=== PATIENT | female | born 1940 | race Caucasian/White ===

== ENCOUNTER 2016-07-16 10:48 | Inpatient (IN) | payer MEDICARE, BC ==
--- NOTE | ~2016-07-16 | EKG ---
PATIENT: REGINE BERRIOS UNIT #: [id number] Ventricular Rate: 93 BPM Atrial Rate: 93 BPM P-R Interval: 170 ms QRS Duration: 54 ms Q-T Interval: 360 ms QTC Calculation(Bezet): 447 ms P [place]: 78 degrees Calculated R [place]: 59 degrees Calculated T [place]: 81 degrees Diagnosis Line: Normal sinus rhythm Diagnosis Line: Normal ECG Diagnosis Line: When compared with ECG of 24-APR-2015 11:45, Diagnosis Line: No significant change was found Diagnosis Line: Confirmed by LOVE ROB MD ([id number]) on Diagnosis Line: 07/17/2016 4:08:56 PM INTERPRETING MD: DARRON PAZ
--- NOTE | ~2016-07-16 | CR72 ---
[facility] A Service of [facility] RADIOLOGY TEXT RESULTS PATIENT: REGINE BERRIOS LOCATION: [facility] : 40 UNIT #: [id number] AGE: [address]: Leobardo Hernandez MD SEX: F ORDER DR: [id number] [facility] [address] [facility]. [place], [place] [address] [id number] I MR#: [id number] #: [id number] NAME: REGINE BERRIOS : 1940 SEX: F STUDY DATE/TIME: 07/16/2016 11:28 UNIT: [facility] ROOM: [facility] STUDY DESCRIPTION: CR Chest Single View Portable Attending Physician: Teri Hernandez M.D. Ordering Physician: Malaika Watson M.D. Primary Care Physician: Kory Dior M.D. MEDICAL IMAGING REPORT This report is preliminary unless electronic signature is present EXAM Chest portable, 07/16/2016 11:28 hours HISTORY 75-year-old woman with shortness of air, wheezing, cough for 4 days. History of COPD, breast cancer and polycythemia. COMPARISON 02/10/2016 FINDINGS Portable upright chest demonstrates normal heart size. Mediastinal and hilar contours are unchanged. There are stable benign calcified granulomata. There is basilar vascular crowding with no definite acute pulmonary density or pleural effusion. IMPRESSION Stable benign calcified granulomatous changes. There is mild basilar vascular crowding with no definite acute cardiopulmonary findings. Stable sclerotic density in the lower thoracic spine. Dictated by... Sara Dueñas M.D. THIS IS AN ELECTRONICALLY VERIFIED REPORT Sara Dueñas M.D. at 07/17/2016 9:25 AM Brandon TD: 07/16/2016 17:22 JOB #: [id number] MEDICAL IMAGING REPORT [facility] A Service of [facility] RADIOLOGY TEXT RESULTS PATIENT: REGINE BERRIOS LOCATION: [facility] : 40 UNIT #: [id number] AGE: [address]: Leobardo Hernandez MD SEX: F ORDER DR: DESMOND
--- NOTE | ~2016-07-16 | DS ---
Unit #: [id number] #: [id number] Patient: REGINE STRINGER [id number] [id number] [facility]. [place], [place] [address] [id number] I MR#: [id number] NAME: REGINE STRINGER ROOM: 227 Age: 75 Sex: F Admission Date: 07/16/2016 : 1940 Discharge Date: 07/22/2016 Attending Physician: Teri Hernandez M.D. Primary Care Physician: Kory Dior M.D. DISCHARGE SUMMARY FINAL DIAGNOSIS Acute exacerbation of chronic obstructive pulmonary disease. OTHER DIAGNOSES 1. Chronic hypoxic, and likely hypercapnic, respiratory failure. 2. Acute bronchitis. 3. Grief reaction. 4. Peripheral arterial disease. CONSULTANTS Vascular consult, Dr. Best. PROCEDURES None. HOSPITAL COURSE Ms. Stringer is a 75-year-old female who presented on the with increasing shortness of air. She was thought to have an exacerbation of COPD. She also had evidence of acute bronchitis and was started on Levaquin. Chest x-ray was read as no definite acute cardiopulmonary findings. She was started on Levaquin and Solu-Medrol and seemed to improve some. We turned down the Solu-Medrol and then turned it back up. Today, I think she is doing better. She is in a difficult situation in that her son and the is out of town in a couple of days. She really wants to get out tomorrow. I think we can take care of that. I will give her Depo-Medrol tomorrow and then start oral prednisone. During this admission Dr. Best saw the patient, and he will see her in followup for peripheral arterial disease. He thought she would be high risk for any significant interventions. As of 07/21/2016, she is doing better and has a little bit of expiratory wheeze but seems to be improved. I will change her Levaquin to oral and her Solu-Medrol to a shot of Depo-Medrol and then prednisone. DISCHARGE MEDICATIONS 1. Albuterol and Atrovent Mini-Neb q.i.d. p.r.n. 2. Lexapro 20 mg p.o. daily. 3. Nystatin 5 mL swish and swallow q.i.d. 4. Anoro Ellipta 1 puff daily. 5. Lasix 20 mg p.o. daily. 6. Protonix 20 mg p.o. daily. 7. She can have Lipitor, if that is her home medicine, 20 mg a day. I am not writing a new prescription for this. Unit #: [id number] #: [id number] Patient: REGINE STRINGER 8. She can have Lortab 7.5/325 q.8 p.r.n. (#20). 9. Prednisone 40 mg p.o. daily, decreasing by 10 mg q.3 days. 10. Levaquin 750 mg p.o. daily for 5 days. FOLLOW-UP She is to follow up with us in the office in about 4 weeks. ACTIVITY As tolerated. OXYGEN REQUIREMENT She will be on her usual 2.5 liters nasal cannula, which she already has. DISCHARGE DIET As tolerated. Dictated by... Shannon Carpio/vandana TD: 07/23/2016 09:16 JOB #: [id number] DISCHARGE SUMMARY X Johny Atwood MD X DISCHARGE SUMMARY
--- NOTE | ~2016-07-16 | HP ---
Unit #: [id number] #: [id number] Patient: REGINE STRINGER [id number] [address] [place], [place] [address] [id number] I MR#: [id number] NAME: REGINE STRINGER ROOM: 94615 Age: 75 Sex: F Admission Date: 07/16/2016 : 1940 Attending Physician: Teri Hernandez M.D. Primary Care Physician: Kory Dior M.D. HISTORY AND PHYSICAL HISTORY OF PRESENT ILLNESS Ms. Stringer is a young lady with a history of COPD last admitted on February 11, 2016. Patient has been down to see her son in [place]. She was doing fine except two days ago when patient started developing wheezing, shortness of breath, chest pain, difficulty breathing, and cough productive of yellow sputum. The patient was having some mild fevers and chills. We have been asked to admit for COPD exacerbation. Chest x-ray did not seem to show any sort of infiltrate. PAST MEDICAL HISTORY 1. Chronic obstructive pulmonary disease, on two liters at home continuous. 2. Irritable bowel disease. 3. History of nonocclusive coronary artery disease in 2006. 4. Trace mitral regurgitation. 5. Chronic back pain. PAST SURGICAL HISTORY 1. Cholecystectomy. 2. Hysterectomy. 3. Breast biopsy. 4. Right knee surgery. 5. Right hip surgery. 6. Bilateral foot surgery. 7. Tonsillectomy. FAMILY HISTORY Breast cancer. No lung disease. SOCIAL HISTORY Patient is a nonsmoker and nondrinker and no recreational substance use. No occupational exposures. Patient did smoke and quit approximately 12 years ago. ALLERGIES MARCAINE, PENICILLIN, TETRACYCLINE, CLINDAMYCIN, AND AZITHROMYCIN. HOME MEDICATIONS 1. Protonix 20 mg daily. 2. Lexapro 20 mg daily. 3. Lasix 20 mg daily. 4. ProAir HFA 6.7 grams inhaled as needed. 5. AeroEclipse 1 nebulizer q.4 hours as needed. 6. Anoro Ellipta 1 puff daily. Unit #: [id number] #: [id number] Patient: REGINE STRINGER REVIEW OF SYSTEMS Negative except as per the History of Present Illness. PHYSICAL EXAMINATION VITAL SIGNS: Temperature 98.1, pulse 82, respiratory rate 18, blood pressure 146/58, and saturating 99% on 2 liters nasal cannula. Ins and outs not recorded. DIAGNOSTIC STUDIES LABORATORY: Lactic acid 0.9. Basic metabolic panel: Sodium 138, potassium 3.4, BUN and creatinine 16 and 1, and bicarb 32. LFTs are normal. CBC 21.8, hemoglobin 13.2, and platelets 347,000. Lactic acid 1.8. Flu swab negative. ASSESSMENT AND PLAN Despite negative chest x-ray, we have acute on chronic respiratory failure, and this is chronic obstructive pulmonary disease exacerbation, but rule out pneumonia. Will try to get a procalcitonin and try to get sputum. Repeat imaging (1) patient is slightly more hydrated if we are going to get a little more information on how ill or not she is. I anticipate discharge in approximately four to five days. Dictated by Shannon Salmeron/cory TD: 07/16/2016 19:23 JOB #: [id number] HISTORY AND PHYSICAL X Leobardo Hernandez MD X HISTORY AND PHYSICAL
--- NOTE | ~2016-07-16 | CR63 ---
[facility] A Service of [facility] RADIOLOGY TEXT RESULTS PATIENT: REGINE BERRIOS LOCATION: [facility] : 40 UNIT #: [id number] AGE: [address]: Leobardo Hernandez MD SEX: F ORDER DR: [id number] [facility] [address] [facility]. [place], [place] [address] [id number] I MR#: [id number] Acc #: [id number] NAME: REGINE BERRIOS : 1940 SEX: F STUDY DATE/TIME: 07/17/2016 19:29 UNIT: [facility] ROOM: [facility] STUDY DESCRIPTION: CR Chest 2 View Attending Physician: Trei Hernandez M.D. Ordering Physician: Jeff Langford M.D. Primary Care Physician: Kory Dior M.D. MEDICAL IMAGING REPORT This report is preliminary unless electronic signature is present EXAM PA and lateral chest 07/17/2016 HISTORY 75-year-old female with shortness of breath increasing over past 5 days. COPD on oxygen. Terminal cancer (cancer type not designated in history). 50-year smoking history. COMPARISON AP portable chest 07/17/2016 at 06:00. FINDINGS Emphysematous changes are present. No acute airspace disease is identified. Chronic-appearing thoracolumbar compression deformities with multilevel kyphoplasty. Calcified lymph nodes are present in the right hilum. IMPRESSION 1. Emphysematous changes. No acute chest findings. 2. Benign calcified granulomatous changes. 3. Multilevel thoracolumbar compression deformities with vertebroplasty. Dictated by... Edith Cote M.D. THIS IS AN ELECTRONICALLY VERIFIED REPORT Edith Cote M.D. at 07/18/2016 10:01 AM NICHELLE/ann TD: 07/18/2016 08:50 JOB #: [id number] [facility] A Service of [facility] RADIOLOGY TEXT RESULTS PATIENT: REGINE BERRIOS LOCATION: A 227-01 : 40 UNIT #: [id number] AGE: [address]: Leobardo Hernandez MD SEX: F ORDER DR: MEDICAL IMAGING REPORT COPY
--- NOTE | ~2016-07-16 | CR72 ---
[facility] A Service of [facility] & [facility] RADIOLOGY TEXT RESULTS PATIENT: REGINE BERRIOS LOCATION: [facility] 227-01 : 40 UNIT #: [id number] AGE: [address]: Leobardo Hernandez MD SEX: F ORDER DR: [id number] [facility] [address] [facility] [address] [place], [place] [address] [id number] I MR#: [id number] Acc #: [id number] NAME: REGINE BERRIOS : 1940 SEX: F STUDY DATE/TIME: 07/17/2016 6:00 UNIT: [facility] ROOM: [facility] STUDY DESCRIPTION: CR Chest Single View Portable Attending Physician: Teri Hernandez M.D. Ordering Physician: Teri Hernandez M.D. Primary Care Physician: Kory Dior M.D. MEDICAL IMAGING REPORT This report is preliminary unless electronic signature is present EXAM Portable chest 07/17/2016 HISTORY Shortness of breath and COPD exacerbation since 07/16/2016 and chest pain, respiratory failure, patient on 2 L of oxygen. FINDINGS The cardiac and mediastinal structures are stable compared with 07/16/2016. The lungs are hyperinflated with emphysematous and fibrotic changes characteristic of COPD. No airspace consolidation is seen. There are no pleural effusions. There is evidence of prior kyphoplasty involving 2 lower thoracic vertebral bodies. IMPRESSION COPD. No active pulmonary disease. Dictated by... Mark Steiner M.D. THIS IS AN ELECTRONICALLY VERIFIED REPORT Mark Steiner M.D. at 07/18/2016 2:24 PM TEOFILO/ann TD: 07/17/2016 11:15 JOB #: [id number] MEDICAL IMAGING REPORT COPY
--- NOTE | ~2016-07-16 | CO ---
Unit #: [id number] #: [id number] Patient: REGINE STRINGER [id number] [address] [place], [place] [address] [id number] I MR#: [id number] NAME: REGINE STRINGER ROOM: 227 Age: 75 Sex: F Admission Date: 07/16/2016 : 1940 Attending Physician: Teri Hernandez M.D. Primary Care Physician: Kory Dior M.D. Consultation Date: 07/19/2016 CONSULTATION REPORT REASON FOR CONSULT Peripheral arterial disease. HISTORY OF PRESENT ILLNESS This is a 75-year-old female with a 50-year history of smoking and COPD. She is on home oxygen at 2.5 liters. She was admitted with COPD exacerbation. She has recently returned from [place] visiting her son who was sick with cancer. Now that she is hospitalized, she underwent CARYN testing, which showed severe ischemia of her right lower extremity. The patient reports that all of her toes are discolored and stay cool. She reports having diminished sensation at the bottom of her feet. She has no rest pain. She has no symptoms of claudication. She ambulates with assistance of a walker. She has a past medical history of a hip replacement that she reports needs to be repaired, as it is "metal on metal." She reports nobody will operate on her because of her lung status. She reports that, when she ambulates, she is limited first by her ability to breathe and second by the pain in her right hip. She does not experience pain in her feet suggestive of claudication. She has no sores or nonhealing wounds on her feet either. We have been asked to see Ms. Stringer in consultation to address these issues. PAST MEDICAL HISTORY 1. COPD. 2. Longstanding history of smoking. Quit smoking 13 years ago. 3. Irritable bowel. 4. Coronary artery disease. 5. Mitral regurgitation. 6. Back pain. 7. Right hip replacement. 8. Right knee replacement. FAMILY HISTORY Noncontributory. SOCIAL HISTORY The patient lives at home with her . Denies current smoking, alcohol or drug use. ALLERGIES Bupivacaine, penicillin, tetracycline, clindamycin, azithromycin. MED LIST 1. Protonix 20 mg daily. 2. Lexapro 20 mg daily. Unit #: [id number] #: [id number] Patient: REGINE STRINGER 3. Lasix 20 mg daily. 4. ProAir 6.7 grams inhalation as needed. 5. AeroEclipse 1 mcg q.4 hours. 6. Anoro Ellipta 1 inhalation daily. REVIEW OF SYSTEMS CONSTITUTIONAL: Generalized tremor. EYES: Negative. ENMT: Negative. RESPIRATORY: Short of air, 2.5 liters nasal cannula home oxygen, coughing, productive sputum, wheezing. CARDIOVASCULAR: Negative. GASTROINTESTINAL: Negative. GENITOURINARY: Negative. HEME/LYMPH: Negative. ENDOCRINE: Negative. MUSCULOSKELETAL: Right hip pain. Right muscle wasting (1) hip. INTEGUMENTARY: Dusky coloration of all toes. NEUROLOGIC: Negative. PSYCHIATRIC: History of anxiety and depression. PHYSICAL EXAMINATION VITALS: Temperature 98.1, respirations 20, heart rate 84, blood pressure 146/59. GENERAL APPEARANCE: This is an obese female in no acute distress. Answers questions appropriately. She has a generalized tremor. Audible wheezing heard upon exam. HEENT: Normocephalic. Pupils are equal and reactive to light. NECK: No carotid bruits noted, although difficult to hear through her audible wheezing. CARDIAC: Regular rate and rhythm. LUNGS: Rhonchi and inspiratory/expiratory wheezing in all lung thibodeaux. Coughing throughout the exam. Wearing 2.5 liters nasal cannula oxygenation. ABDOMEN: Positive bowel sounds. Soft, nontender. No distention. MUSCULOSKELETAL: Moves all extremities. Decreased range of motion right hip. VASCULAR: Palpable radial pulses bilaterally. Weak palpable femoral pulses bilaterally. Nonpalpable popliteal, DP/PT pulses bilaterally. INTEGUMENTARY: Skin is warm and dry; however, all five toes of lower extremities are dusky in coloration. She has no obvious sores, lesions or nonhealing wounds. Capillary refill of the toes of the left foot are less than 3 seconds. Capillary refill on the toes of the right foot are greater than 5 seconds on the second, third and fourth toes. Right great and right fifth toe capillary refill is 3 seconds. NEUROLOGIC: Cranial nerves II-XII grossly intact. PSYCHIATRIC: Oriented to person, place and time. DIAGNOSTIC STUDIES IMAGING: The patient underwent lower extremity ABIs indicating a right CARYN of 0.35 and left CARYN of 0.59 with diminished toe pressures. LAB RESULTS: Sodium 139, potassium 4.2, chloride 96, CO2 33, BUN 26, creatinine 0.8, glucose 125. Hemoglobin 13, hematocrit 42.6, WBC 22.3, platelets 381. ASSESSMENT 1. Peripheral arterial disease. 2. COPD. Unit #: [id number] #: [id number] Patient: REGINE STRINGER IMPRESSION/PLAN The patient has a right CARYN measuring 0.35 and left CARYN measuring 0.59. She also has diminished toe pressures. The patient has no sores, lesions or nonhealing wounds. She has no symptoms of claudication or rest pain. Our recommendation would be to continue with conservative management, including aspirin and statin therapy. We recommend the patient protect the skin integrity of her feet by wearing shoes at all times when ambulating. We discussed the possibility that if she ever obtained a cut or sore to her feet, especially her right foot, it would likely not heal. If she required intervention of any kind, she should be at high risk related to her COPD and continuous oxygen requirement. Thank you for allowing us to participate in the care of this patient. Dictated by... Maik Luna APRN for Shannon Mccain/vandana TD: 07/19/2016 12:20 JOB #: [id number] CONSULTATION REPORT X X CONSULTATION REPORT
--- NOTE | ~2016-07-16 | US136 ---
[facility] A Service of [facility] RADIOLOGY TEXT RESULTS PATIENT: REGINE BERRIOS LOCATION: C2A : 40 UNIT #: [id number] AGE: [address]: Leobardo Hernandez MD SEX: F ORDER DR: [id number] [facility] [address] [place], [place] [address] [id number] I MR#: [id number] Acc #: [id number] NAME: REGINE BERRIOS : 1940 SEX: F STUDY DATE/TIME: 07/18/2016 23:06 UNIT: C2A ROOM: [facility] STUDY DESCRIPTION: US U/L Ext Art Study Ltd Bilat Attending Physician: Leobardo Hernandez Ordering Physician: Leobardo Hernandez Primary Care Physician: Kory Dior M.D. MEDICAL IMAGING REPORT This report is preliminary unless electronic signature is present EXAM Bilateral ankle-brachial indices. INDICATIONS Claudication and rest pain in both lower extremities. Patient reports cold feet turning black for years. TECHNIQUE Sequential pressures were obtained through both lower extremities and pulse volume recordings were generated. FINDINGS This patient's ankle-brachial indices are markedly abnormal measuring 0.238 at the dorsalis pedis artery on the right and 0.35 posterior tibial artery on the right. The ankle-brachial index at the posterior tibial artery on the left 0.59 and there is dorsalis pedis artery on the left 0.50. Patient's toe-brachial indices are also diminished measuring 0.16 on the right and 0.43 on the left. Near flattening of the waveform is noted within the right great toe pulse volume recording. IMPRESSION 1. This patient's ankle-brachial indices are markedly diminished, right greater than left, in fact, ankle-brachial index of dorsalis pedis artery of the right is less than 0.3 which is suggestive of limb threatening ischemia. At a minimum patient is suspected to have multiple levels arterial disease throughout both lower extremities. Further evaluation with CT angiography of the abdomen and pelvis with bilateral extremity runoff is recommended. 2. Toe-brachial indices are also diminished particularly on the right which I suspect reflects at least some component of inflow disease although some small vessel disease as well certainly not excluded. Dictated by... [facility] A Service of [facility] RADIOLOGY TEXT RESULTS PATIENT: REGINE BERRIOS LOCATION: [facility] 227-01 : 40 UNIT #: [id number] AGE: [address]: Leobardo Hernandez MD SEX: F ORDER DR: Farhana Morales M.D. THIS IS AN ELECTRONICALLY VERIFIED REPORT Farhana Morales M.D. at 07/18/2016 5:18 PM AFF/dj TD: 07/18/2016 12:57 JOB #: [id number] MEDICAL IMAGING REPORT COPY
[~2016-07-16 10:48] MED LIST: AEROECLIPSE II1 EACH MC; ALBUTEROL MININEB NEB; ALBUTEROL0.83 MG/ML INH; ALBUTEROL2.5 MG/0.5 IH; AMITIZA8 MCG PO; ANORO ELLIPTA1 EACH IH; ANORO ELLIPTA1 EACH INH; COLACE PO; COMBIVENT U/D3 M1 INH; DALIRESP500 MCG DOB; DELTASONE20 MG PO; DOCU SOFT100 M1 PO; FLORASTOR250 M1 PO; GENTLE LAXATIVE10 MG; HUMIBID DM1 TAB PO; LASIX20 MG PO; LEVAQUIN PO; LEVAQUIN250 MG PO; LEXAPRO20 MG PO; MIRALAX17 GM PO; NILSTAT1 ML PO; OMNICEF300 M1 PO; OMNICEF300 MG PO; PREDNISONE PO; PREDNISONE10 MG/DOSE PO; PROAIR HFA8.5 GM INH; PROTONIX PO; QVAR7.3 G1 IH; QVAR7.3 GM INH; XANAX0.5 M1 PO
[2016-07-16 11:30] LABS: POC - CKMB 3.9 ng/mL (0.0-7.9); POC - TROPONIN <0.05 ng/mL (<=0.05)
[2016-07-16 11:36] LABS: INFLUENZA A NEG (NEG); INFLUENZA B NEG (NEG)
[2016-07-16 11:36] LABS: BASOPHIL# 0.1 X10e3 (0-0.3); BASOPHIL% 0.4 % (0-2.5); EOSINOPHIL# 0.1 X10e3 (0-0.7); EOSINOPHIL% 0.7 % (0.0-7.0); HEMATOCRIT 41.1 % (35.0-45.0); HEMOGLOBIN 13.2 gm/dL (12.0-16.0); LYMPHOCYTE# 1.6 X10e3 (1.0-3.5); LYMPHOCYTE% 7.5 % (17.0-45.0); MEAN CELL VOLUME 89.1 FL (83-96); MEAN CORPUSCULAR HEMOGLOBIN 28.7 PG (28-34); MEAN CORPUSCULAR HGB CONC 32.2 g/dL (30-36); MEAN PLATELET VOLUME 8.7 FL (6.5-11.5); MONOCYTE# 2.4 X10e3 (0-1.0); MONOCYTE% 11.2 % (3.0-12.0); NEUTROPHIL# 17.4 X10e3 (1.5-7.1); NEUTROPHIL% 80.2 % (40-75); PLATELET COUNT 347 X10e3 (140-420); RED BLOOD COUNT 4.62 X10e (3.90-5.30); RED CELL DISTRIBUTION WIDTH 14.3 % (11.0-15.5); WHITE BLOOD COUNT 21.8 X10e3 (4.0-10.5)
[2016-07-16 11:37] LABS: DIFF IND YES
[2016-07-16 11:50] LABS: ALBUMIN SERUM 3.5 g/dL (3.5-5.0); BILIRUBIN, DIRECT 0.1 mg/dL (0.0-0.2); BILIRUBIN,INDIRECT 0.5 mg/dL (0.0-0.9); BILIRUBIN,TOTAL 0.6 mg/dL (0.2-2.0); CALCIUM SERUM 9.1 mg/dL (8.4-10.2); GLOM FILT RATE Estimated 57.4 mL/min (>60); MAGNESIUM 1.8 mg/dL (1.6-3.0); PARTIAL THROMBOPLASTIN TIME 23.8 SECONDS (23.5-31.3); POTASSIUM 3.4 mmol/L (3.5-5.1); PROTEIN TOTAL SERUM 6.7 g/dL (6.0-8.3); PROTHROMBIN TIME (PATIENT) 10.6 SECONDS (9.6-11.5)
[2016-07-16 12:00] LABS: PLATELET ESTIMATE NORMAL (NORMAL); RBC NORMAL YES
[2016-07-16 12:39] LABS: POC - CKMB 3.6 ng/mL (0.0-7.9); POC - TROPONIN <0.05 ng/mL (<=0.05)
[2016-07-16 14:54] LABS: PROCALCITONIN 0.11 NG/ML
[2016-07-17 05:18] LABS: BASOPHIL% 0.2 % (0-2.5); HEMATOCRIT 40.8 % (35.0-45.0); HEMOGLOBIN 13.1 gm/dL (12.0-16.0); LYMPHOCYTE# 0.7 X10e3 (1.0-3.5); LYMPHOCYTE% 4.4 % (17.0-45.0); MEAN CELL VOLUME 88.8 FL (83-96); MEAN CORPUSCULAR HEMOGLOBIN 28.5 PG (28-34); MEAN CORPUSCULAR HGB CONC 32.1 g/dL (30-36); MEAN PLATELET VOLUME 8.9 FL (6.5-11.5); MONOCYTE# 0.2 X10e3 (0-1.0); MONOCYTE% 1.3 % (3.0-12.0); NEUTROPHIL# 15.8 X10e3 (1.5-7.1); NEUTROPHIL% 94.1 % (40-75); PLATELET COUNT 290 X10e3 (140-420); RED BLOOD COUNT 4.59 X10e (3.90-5.30); RED CELL DISTRIBUTION WIDTH 14.5 % (11.0-15.5); WHITE BLOOD COUNT 16.8 X10e3 (4.0-10.5)
[2016-07-17 05:19] LABS: DIFF IND NO
[2016-07-17 05:37] LABS: ALBUMIN SERUM 3.1 g/dL (3.5-5.0); ALKALINE PHOSPHATASE 93 U/L (32-92); ALT (SGPT) 19 U/L (10-40); AST (SGOT) 20 U/L (10-42); BILIRUBIN,TOTAL 0.5 mg/dL (0.2-2.0); BLOOD UREA NITROGEN 14 mg/dL (9-23); BUN/CREATININE RATIO 15.55; CALCIUM SERUM 9.1 mg/dL (8.4-10.2); CARBON DIOXIDE 30 mmol/L (22-31); CHLORIDE 100 mmol/L (100-111); CREATININE SERUM 0.9 mg/dL (0.6-1.4); GLOM FILT RATE Estimated ABOVE60 mL/min (>60); GLUCOSE FASTING 142 mg/dL (70-110); POTASSIUM 4.5 mmol/L (3.5-5.1); PROTEIN TOTAL SERUM 6.5 g/dL (6.0-8.3); SODIUM 140 mmol/L (135-145)
[2016-07-17 05:53] LABS: PROCALCITONIN 0.18 NG/ML
[2016-07-18 05:41] LABS: HEMATOCRIT 39.4 % (35.0-45.0); HEMOGLOBIN 12.7 gm/dL (12.0-16.0); MEAN CELL VOLUME 89.1 FL (83-96); MEAN CORPUSCULAR HEMOGLOBIN 28.7 PG (28-34); MEAN CORPUSCULAR HGB CONC 32.1 g/dL (30-36); MEAN PLATELET VOLUME 8.9 FL (6.5-11.5); RED BLOOD COUNT 4.42 X10e (3.90-5.30); RED CELL DISTRIBUTION WIDTH 14.2 % (11.0-15.5); WHITE BLOOD COUNT 18.1 X10e3 (4.0-10.5)
[2016-07-18 06:37] LABS: BLOOD UREA NITROGEN 19 mg/dL (9-23); BUN/CREATININE RATIO 21.11; CALCIUM SERUM 9.4 mg/dL (8.4-10.2); CARBON DIOXIDE 30 mmol/L (22-31); CHLORIDE 100 mmol/L (100-111); CREATININE SERUM 0.9 mg/dL (0.6-1.4); GLOM FILT RATE Estimated ABOVE60 mL/min (>60); GLUCOSE FASTING 155 mg/dL (70-110); POTASSIUM 3.8 mmol/L (3.5-5.1); SODIUM 143 mmol/L (135-145)
[2016-07-19 06:45] LABS: HEMATOCRIT 42.6 % (35.0-45.0); HEMOGLOBIN 13.5 gm/dL (12.0-16.0); MEAN CORPUSCULAR HEMOGLOBIN 28.5 PG (28-34); MEAN CORPUSCULAR HGB CONC 31.6 g/dL (30-36); RED BLOOD COUNT 4.74 X10e (3.90-5.30); RED CELL DISTRIBUTION WIDTH 14.4 % (11.0-15.5); WHITE BLOOD COUNT 22.3 X10e3 (4.0-10.5)
[2016-07-19 06:56] LABS: BLOOD UREA NITROGEN 23 mg/dL (9-23); BUN/CREATININE RATIO 28.75; CALCIUM SERUM 9.3 mg/dL (8.4-10.2); CARBON DIOXIDE 33 mmol/L (22-31); CHLORIDE 96 mmol/L (100-111); CREATININE SERUM 0.8 mg/dL (0.6-1.4); GLOM FILT RATE Estimated ABOVE60 mL/min (>60); GLUCOSE FASTING 125 mg/dL (70-110); POTASSIUM 4.2 mmol/L (3.5-5.1); SODIUM 139 mmol/L (135-145)
[2016-07-20 05:44] LABS: HEMATOCRIT 40.9 % (35.0-45.0); HEMOGLOBIN 12.8 gm/dL (12.0-16.0); MEAN CELL VOLUME 89.8 FL (83-96); MEAN CORPUSCULAR HEMOGLOBIN 28.1 PG (28-34); MEAN CORPUSCULAR HGB CONC 31.3 g/dL (30-36); MEAN PLATELET VOLUME 8.7 FL (6.5-11.5); RED BLOOD COUNT 4.55 X10e (3.90-5.30); RED CELL DISTRIBUTION WIDTH 14.6 % (11.0-15.5); WHITE BLOOD COUNT 20.4 X10e3 (4.0-10.5)
[2016-07-20 06:39] LABS: CALCIUM SERUM 9.2 mg/dL (8.4-10.2); GLOM FILT RATE Estimated 57.4 mL/min (>60); POTASSIUM 4.5 mmol/L (3.5-5.1)
[2016-07-21 05:59] LABS: HEMATOCRIT 40.5 % (35.0-45.0); HEMOGLOBIN 12.9 gm/dL (12.0-16.0); MEAN CELL VOLUME 89.2 FL (83-96); MEAN CORPUSCULAR HEMOGLOBIN 28.5 PG (28-34); MEAN CORPUSCULAR HGB CONC 31.9 g/dL (30-36); MEAN PLATELET VOLUME 8.6 FL (6.5-11.5); RED BLOOD COUNT 4.54 X10e (3.90-5.30); RED CELL DISTRIBUTION WIDTH 14.3 % (11.0-15.5); WHITE BLOOD COUNT 20.5 X10e3 (4.0-10.5)
[2016-07-21 06:25] LABS: BLOOD UREA NITROGEN 26 mg/dL (9-23); BUN/CREATININE RATIO 28.88; CALCIUM SERUM 9.1 mg/dL (8.4-10.2); CARBON DIOXIDE 37 mmol/L (22-31); CHLORIDE 96 mmol/L (100-111); CREATININE SERUM 0.9 mg/dL (0.6-1.4); GLOM FILT RATE Estimated ABOVE60 mL/min (>60); GLUCOSE FASTING 103 mg/dL (70-110); POTASSIUM 4.4 mmol/L (3.5-5.1); SODIUM 139 mmol/L (135-145)
[2016-07-22] MEDS ORDERED: NYSTATIN5 ML PO (07:38)
[2016-07-22] MEDS ORDERED: ROBITUSSIN COU118 M8 PO (07:40)
[2016-07-22] MEDS ORDERED: ASPIRIN EC81 M1 PO (07:41)
[2016-07-22] MEDS ORDERED: ANEXSIA 7.5/3251 TA1 PO (07:42)
[2016-07-22] MEDS ORDERED: PROTONIX20 MG PO (07:42)
[2016-07-22] MEDS ORDERED: LEVAQUIN750 M1 PO (07:44)
[2016-07-22] MEDS ORDERED: PREDNISONE10 MG/DOSE PO (07:44)
== END 2016-07-22 09:57 | disposition home or self-care (01) | DRG 190 ==
LOC: CED 10:48 → CEDOF 18:31 → C2A 22:47
PROVIDERS: Emergency Medicine; Internal Medicine Pulmonary Disease; Nurse Practitioner Critical Care Medicine
DX: J44.0 Chronic obstructive pulmonary disease with (acute) lower respiratory infection (principal); J96.21 Acute and chronic respiratory failure with hypoxia; J96.20 Acute and chronic respiratory failure, unspecified whether with hypoxia or hypercapnia; B37.0 Candidal stomatitis; J20.9 Acute bronchitis, unspecified; J44.1 Chronic obstructive pulmonary disease with (acute) exacerbation; F43.20 Adjustment disorder, unspecified; I73.9 Peripheral vascular disease, unspecified; Z90.49 Acquired absence of other specified parts of digestive tract; Z90.710 Acquired absence of both cervix and uterus; Z80.3 Family history of malignant neoplasm of breast; Z87.891 Personal history of nicotine dependence; Z88.0 Allergy status to penicillin; Z88.8 Allergy status to other drugs, medicaments and biological substances; Z96.641 Presence of right artificial hip joint; Z96.652 Presence of left artificial knee joint; E66.9 Obesity, unspecified; Z68.27 Body mass index [BMI] 27.0-27.9, adult; K58.9 Irritable bowel syndrome, unspecified
CPT/HCPCS: 36415; 71010; 71020; 80048; 80053; 80076; 82308; 82553; 82607; 83036; 83605; 83735; 83880; 84484; 85025; 85027; 85610; 85652; 85730; 87040; 87070; 87205; 87633; 87804; 93005; 93922; 94640; 94760; 96365; 97162; 99285; G8978-GP; G8979-GP; G8980-GP; J1040; J1650; J1956; J2920; J2930

== ENCOUNTER 2016-09-03 11:30 | Inpatient (IN) | payer MEDICARE, BC ==
--- NOTE | ~2016-09-03 | CO ---
Unit #: [id number] #: [id number] Patient: JENNIFER STRINGER [id number] [facility] [address] [facility]. [place], [place] [address] [id number] I MR#: [id number] NAME: JENNIFER STRINGER ROOM: 240 Age: 75 Sex: F Admission Date: 09/03/2016 : 1940 Attending Physician: Leobardo Hernandez Primary Care Physician: Kory Dior M.D. Consultation Date: 09/07/2016 CONSULTATION REPORT REASON FOR CONSULTATION Depression, anxiety. HISTORY OF PRESENT ILLNESS Ms. Jennifer Stringer is a 75-year-old white female, seen in room 240, bed 1 on 09/07/2016 at [facility]. The patient reported that she lost her son 51 years of age from cancer in 07/2016. The patient reported that she ended up here in the hospital currently having COPD exacerbation, having problem with the anxiety, depression. The patient dressed casually in hospital attire, sitting comfortably, receiving oxygen through nasal cannula. The patient's was at the bedside. The patient was tearful, sad, dysphoric, anxious. The patient was started on Lexapro and Xanax. Tolerating medication fairly well. The patient currently denied any suicidal or homicidal ideation. Denied any psychotic symptom, but sad, depressed, anxious and denied any use of any drugs or alcohol. The patient denied any prior history of any depression and anxiety. PAST PSYCHIATRIC HISTORY Unremarkable for any history of depression or any inpatient or outpatient treatment. MEDICAL HISTORY History of COPD on 2 L of oxygen at home continuous, irritable bowel syndrome, history of nonocclusive coronary artery disease in 2006, trace mitral regurgitation, chronic pain. MEDICATIONS The patient is on Lexapro 20 mg daily, Lasix 20 mg daily, Protonix, ProAir. FAMILY HISTORY AND SOCIAL HISTORY The patient has a good support system from . No history of any abuse. No history of any substance abuse. REVIEW OF SYSTEMS Complete review of systems is unremarkable except for shortness of air and anxiety, depression. MENTAL STATUS EXAMINATION Vital signs; temperature 98.3, pulse 92, respirations 18, blood pressure 138/54, oxygen saturation 100% on oxygen continuous. General appearance, the patient dressed casually in hospital attire. Attention span and concentration, fair. Speech, regular rate and coherent. Oriented in time, place, and person. Mood and affect, sad, and depressed. Thought Unit #: [id number] #: [id number] Patient: JENNIFER STRINGER process was coherent. Thought content, the patient denied any thoughts of harming self or others or any psychotic symptom. Recent and remote memory, fair. Language, intact. Fund of knowledge, fair. Insight and judgment, fair to slightly impaired. DIAGNOSES Psychiatric: Major depressive disorder, recurrent, severe, F33.2. Secondary diagnosis: Deferred. Medical diagnosis: Please refer to H and P. Stressors: Psychosocial stressors. ASSESSMENT AND PLAN 1. Supportive psychotherapy and psychoeducation provided to the patient. 2. Educated about benefits and side effects of medication and course and prognosis of illness. 3. Advised to continue with current combination of Xanax p.r.n. and Lexapro 20 mg daily. The patient was advised to follow up on the outpatient basis with a counselor for grief counseling, as the patient recently lost her son. The patient to follow up with the psychiatrist and given outpatient clinics #[phone]. Please feel free to call if any questions, telephone #[phone]. The patient was also given crisis line number of [facility] [phone]. Dictated by... Jerald Brenner M.D. WARREN/albert TD: 09/08/2016 00:45 JOB #: [id number] CONSULTATION REPORT Page 1 of 1 X Jerald Brenner MD X CONSULTATION REPORT
--- NOTE | ~2016-09-03 | CR71 ---
[facility] A Service of [facility] RADIOLOGY TEXT RESULTS PATIENT: REGINE BERRIOS LOCATION: [facility] : 40 UNIT #: [id number] AGE: [address]: Leobardo Hernandez MD SEX: F ORDER DR: [id number] [facility] [address] [address] [facility]. [place], [place] [address] [id number] I MR#: [id number] Acc #: [id number] NAME: REGINE BERRIOS : 1940 SEX: F STUDY DATE/TIME: 09/11/2016 4:22 UNIT: [facility] ROOM: 240 STUDY DESCRIPTION: CR Chest Single View Attending Physician: Leobardo Hernandez Ordering Physician: Leobardo Hernandez Primary Care Physician: Kory Dior M.D. MEDICAL IMAGING REPORT This report is preliminary unless electronic signature is present EXAM AP portable chest Date: 09/11/2016 HISTORY Shortness breath, COPD and cough. Symptoms have been present for 8 days. Remote smoking history, quit 12 years ago. COMPARISON PA and lateral chest 09/08/2006. FINDINGS Linear lucency projects over the left lateral hemithorax. It is unclear whether this represents artifact external to the patient or a pneumothorax. No acute airspace disease is seen. Benign calcified granulomas changes are present within the right hilum. Vertebroplasty changes are present within the thoracic lumbar spine. Osteopenic changes are present. No pleural effusion is seen. IMPRESSION 1. Linear lucency projects over the right lateral thorax. It is unclear to me whether this represents a skin fold artifact or a true pneumothorax. The former is favored. Further evaluation with inspiratory/expiratory views of the chest is recommended at this time. Findings and recommendations were called to patient's nurse, Hazel, at the time of this dictation. 2. No acute airspace disease. Benign calcified granulomatous changes. Dictated by... Edith Cote M.D. [facility] A Service of [facility] RADIOLOGY TEXT RESULTS PATIENT: REGINE BERRIOS LOCATION: [facility] 01 : 40 UNIT #: [id number] AGE: [address]: Leobardo Hernandez MD SEX: F ORDER DR: THIS IS AN ELECTRONICALLY VERIFIED REPORT Edith Cote M.D. at 09/11/2016 9:58 PM Lesli TD: 09/11/2016 06:19 JOB #: [id number] MEDICAL IMAGING REPORT Page 1 of 1 COPY
--- NOTE | ~2016-09-03 | CO ---
Unit #: [id number] #: [id number] Patient: REGINE BERRIOS [id number] [facility] [address] [facility]. [place], [place] [address] [id number] I MR#: [id number] NAME: REGINE BERRIOS ROOM: 240 Age: 75 Sex: F Admission Date: 09/03/2016 : 1940 Attending Physician: Teri Hernandez M.D. Primary Care Physician: Kory Dior M.D. Consultation Date: 09/11/2016 CONSULTATION REPORT REASON FOR CONSULTATION Followup discussion. HISTORY OF PRESENT ILLNESS Miss Rodriguez is a 75-year-old female seen in room 240, bed 1 on 09/11/16 at [facility]. Patient receiving oxygen through nasal cannula. Patient's was at the bedside. Patient reported that she was able to sleep well but still having problem with the anxiety, depression, but denied any suicidal or homicidal ideation, denied any psychotic symptom. Patient reports taking medication p.o., unable to start IV. Patient is currently on prednisone, Levaquin. Patient reported that she is ready to go home. She reported depression medication is helping her. The patient's vital signs are MENTAL STATUS EXAMINATION Vital signs: 97.7, 79, 14, 133/61, oxygen saturation 99%. GENERAL APPEARANCE: Patient dressed casually, sitting conformably in a chair. Attention span and concentration: Fair. SPEECH: A regular rate. ORIENTATION: Oriented in time, place and person. MOOD AND AFFECT: Sad, dysphoric, flat. THOUGHT PROCESS: Coherent. THOUGHT CONTENT: Patient denied any thoughts of harming self or others or any psychotic symptoms. MEMORY: Recent and remote memory fair. LANGUAGE: Intact. Fund of knowledge: Fair. Insight and judgment: Fair to slightly impaired. DIAGNOSES PSYCHIATRIC: 1. Major depressive disorder, recurrent, severe, F33.2. 2. Anxiety disorder, not otherwise specified, F40.01 ASSESSMENT/PLAN 1. Supportive psychotherapy and psychoeducation provided to patient. 2. Educated about benefits and side effects of medication and course and prognosis of illness. 3. Advised to continue with current medication. 4. Patient was given information about outpatient clinic, [facility], to follow up in that clinic after discharge. In the meantime continue with current medication. Unit #: [id number] #: [id number] Patient: REGINE BERRIOS Please feel free to call if any question; telephone number [phone]. Dictated by... Shannon Kuo/rubens TD: 09/11/2016 17:54 JOB #: [id number] CONSULTATION REPORT Page 1 of 1 X Jerald Brenner MD X CONSULTATION REPORT
--- NOTE | ~2016-09-03 | CO ---
Unit #: [id number] #: [id number] Patient: JENNIFER STRINGER [id number] [place] [address] [facility]. [place], [place] [address] [id number] I MR#: [id number] NAME: JENNIFER STRINGER ROOM: 240 Age: 75 Sex: F Admission Date: 09/03/2016 : 1940 Attending Physician: Teri Hernandez M.D. Primary Care Physician: Kory Dior M.D. Consultation Date: 09/10/2016 CONSULTATION REPORT DISCUSSION Ms. Jennifer Stringer is a 75-year-old female, seen on 09/10/2016 in room 240, bed 1 at [facility]. The patient was receiving oxygen through the nasal cannula. The patient does not have any IV. The patient reports that they have tried multiple times and unable to get that. The patient reported that she now understands why she is not getting better as she is not getting her medication as she does not have any IV. Mood; sad, dysphoric, flat affect, guarded, but denied any suicidal or homicidal ideation. Denied any psychotic symptoms. The patient reported still having problem with depression and anxiety, but sleeping better. Vital signs; temperature 98.9, pulse 76, respirations 18, blood pressure 138/62, oxygen saturation 97%. REVIEW OF SYSTEMS Complete review of systems is unremarkable. MENTAL STATUS EXAMINATION General appearance; the patient dressed casually, sitting comfortably in a recliner, receiving oxygen through nasal cannula. Attention span and concentration, fair. Speech; regular rate, coherent. Oriented in time, place, and person. Mood and affect; sad, dysphoric. Thought process, coherent. Thought content; denied any suicidal or homicidal ideation. Denied any psychotic symptom. Recent and remote memory, fair. Language, intact. Fund of knowledge, fair. Insight and judgment, fair. DIAGNOSES Major depressive disorder, recurrent, severe, F33.2; anxiety disorder, not otherwise specified, F40.01. ASSESSMENT AND PLAN 1. Supportive psychotherapy and psychoeducation provided to the patient. 2. Educated about benefits and side effects of medication and course and prognosis of illness. 3. Advised to continue with current medication. If needed, consider further adjustment of medication. Dictated by... Shannon Kuo/albert TD: 09/10/2016 16:42 JOB #: [id number] Unit #: [id number] #: [id number] Patient: JENNIFER STRINGER CONSULTATION REPORT Page 1 of 1 X Jerald Brenner MD X CONSULTATION REPORT
--- NOTE | ~2016-09-03 | DS ---
Unit #: [id number] #: [id number] Patient: REGINE BERRIOS [id number] [address] [place], [place] [address] [id number] I MR#: [id number] NAME: REGINE BERRIOS ROOM: 240 Age: Sex: F Admission Date: 09/03/2016 : 1940 Discharge Date: 09/11/2016 Attending Physician: Teri Hernandez M.D. Primary Care Physician: Kory Dior M.D. DISCHARGE SUMMARY REASON FOR ADMISSION COPD exacerbation. The patient has a history of acute on chronic respiratory failure and insomnia. CONSULTATION Dr. Brenner for insomnia/anxiety. HISTORY OF PRESENT ILLNESS/HOSPITAL COURSE Patient is a 73-year-old lady seen in the office with failure of outpatient steroid. She was given dose on 08/31/16 and started on prednisone; however, patient presented with continued cough, shortness of breath, and wheezing. It was believed that she was continuing to have a COPD exacerbation and respiratory failure. Therefore, patient was continued on IV steroids. She gradually started to improve. A (1) respiratory panel was done and is still pending at this time. No evidence of severe pneumonia found. The patient was having significant anxiety and, therefore, Dr. Brenner was asked to see the patient. Patient is not having any significant nausea, vomiting, or diarrhea; just some shortness of breath with exertion. The patient slowly improved; however, she continued to have significant shortness of breath. Therefore, she had a chest x-ray, which showed some increased infiltrates; however, there was no elevation of procalcitonin, no increased work of breathing, and no elevation of white count. Repeat chest x-ray showed that there was (2) no significant infiltrate bilateral. Therefore, patient was sent home on 09/11/2016 to have home health care to help her out. MEDICATIONS The home medications are: 1. Albuterol sulfate (ProAir HFA) 2 puffs q.2 hours p.r.n. 2. Prednisone 60 mg x1 day, 50 mg x1 day, 40 mg x1 day, and 30 mg x1 day. 3. Lexapro 20 mg at bedtime. 4. Anoro 1 puff daily. 5. Xanax 0.25 mg p.o. at bedtime p.r.n., #15. 6. Furosemide 20 mg daily. 7. Protonix 20 mg daily. 8. Levaquin 750 mg x3 days. DISCHARGE INSTRUCTIONS 1. Patient is to follow up with Dr. Atwood's office in approximately two weeks with Ms. Jonelle Farnsworth. 2. Diet is regular. 3. Activity is as tolerated. Unit #: [id number] #: [id number] Patient: REGINE BERRIOS Please page me at [phone] if any questions. Dictated by... Shannon Salmeron TD: 09/12/2016 08:19 JOB #: [id number] DISCHARGE SUMMARY Page 1 of 1 X Leobardo Hernandez MD X DISCHARGE SUMMARY
--- NOTE | ~2016-09-03 | CR63 ---
[facility] A Service of [facility] RADIOLOGY TEXT RESULTS PATIENT: REGINE BERRIOS LOCATION: A 240-01 : 40 UNIT #: [id number] AGE: [address]: Leobardo Hernandez MD SEX: F ORDER DR: [id number] [facility] [address] [facility]. [place], [place] [address] [id number] I MR#: [id number] Acc #: [id number] NAME: REGINE BERRIOS : 1940 SEX: F STUDY DATE/TIME: 09/11/2016 7:08 UNIT: [facility] ROOM: 240 STUDY DESCRIPTION: CR Chest 2 View Attending Physician: Leobardo Hernandez Ordering Physician: Teri Hernandez M.D. Primary Care Physician: Kory Dior M.D. MEDICAL IMAGING REPORT This report is preliminary unless electronic signature is present EXAM 2 views chest 09/11/2016 HISTORY Possible pneumothorax. FINDINGS AP inspiration expiration views of the chest presented with lateral view. Comparison 09/11/2016 0422 hours. Postprocedural changes of multilevel vertebroplasty in the thoracic and lumbar spine. Stable appearance. Degenerative changes. No acute-appearing bony abnormality. Heart and mediastinum within normal limits of size and contour. Lungs are well inflated. There is no evidence of acute infectious or inflammatory disease, pleural effusion or pneumothorax. Linear lucency projecting over the right lateral hemithorax on earlier radiograph not present on current study and probably representing some form of skin fold artifact on prior examination. There is no suspicious nodule. Healed granulomatous disease again noted. Dictated by... Bj Eubanks M.D. THIS IS AN ELECTRONICALLY VERIFIED REPORT Bj Eubanks M.D. at 09/11/2016 9:09 AM ALCIDES/ann TD: 09/11/2016 08:03 JOB #: [id number] MEDICAL IMAGING REPORT Page 1 of 1 COPY
--- NOTE | ~2016-09-03 | CR63 ---
[facility] A Service of [facility] RADIOLOGY TEXT RESULTS PATIENT: REGINE BERRIOS LOCATION: [facility] 240-01 : 40 UNIT #: [id number] AGE: [address]: Leobardo Hernandez MD SEX: F ORDER DR: [id number] [facility] [address] [place], [place] [address] [id number] I MR#: [id number] Acc #: [id number] NAME: REGINE BERRIOS : 1940 SEX: F STUDY DATE/TIME: 09/08/2016 10:30 UNIT: [facility] ROOM: 240 STUDY DESCRIPTION: CR Chest 2 View Attending Physician: Teri Hernandez M.D. Ordering Physician: Arely Cartwright A.P.R.N. Primary Care Physician: Kory Dior M.D. MEDICAL IMAGING REPORT This report is preliminary unless electronic signature is present EXAM Chest 2 views dated 09/08/2016 COMPARISON Single view chest dated 09/03/2016. HISTORY Shortness of air, COPD and cough for 2 weeks. FINDINGS Chest 2 views were obtained. Stable calcified mediastinal and right hilar lymph nodes are noted. They are in keeping with old granulomatous disease. Kyphoplasty changes are noted in 1 of the vertebral bodies in the thoracolumbar junction and 1 of the mid thoracic vertebral bodies. Stable. No superimposed acute patchy dense consolidation, pleural effusion, or pneumothorax. Minimal subsegmental atelectasis in left lower lung zone cannot be excluded in the frontal view but it is not clearly seen in the lateral view. Dictated by... Ian Rob M.D. THIS IS AN ELECTRONICALLY VERIFIED REPORT Ian Rob M.D. at 09/10/2016 2:59 PM CPR/aa TD: 09/08/2016 13:00 JOB #: [id number] MEDICAL IMAGING REPORT Page 1 of 1 COPY
--- NOTE | ~2016-09-03 | CR72 ---
[facility] A Service of [facility] RADIOLOGY TEXT RESULTS PATIENT: REGINE BERRIOS LOCATION: [facility] : 40 UNIT #: [id number] AGE: [address]: Leobardo Hernandez MD SEX: F ORDER DR: [id number] [facility] [address]. [place], [place] [address] [id number] I MR#: [id number] Acc #: [id number] NAME: REGINE BERRIOS : 1940 SEX: F STUDY DATE/TIME: 09/03/2016 13:26 UNIT: [facility] ROOM: [facility] STUDY DESCRIPTION: CR Chest Single View Portable Attending Physician: Teri Hernandez M.D. Ordering Physician: Teri Hernandez M.D. Primary Care Physician: Kory Dior M.D. MEDICAL IMAGING REPORT This report is preliminary unless electronic signature is present EXAM AP portable chest, 09/03/2016 HISTORY Shortness of breath and COPD for 2 weeks. Congestive heart failure. COMPARISON PA and lateral chest, 07/17/2016 FINDINGS Lungs are free of acute airspace disease. Benign calcified granulomatous changes are present in the right hilum. Heart size is within normal limits. Vertebroplasty changes are present in the thoracolumbar junction, similar to prior exam. No pleural effusion or pneumothorax is identified. Lungs appear mildly hyperinflated and emphysematous, similar to previous exam. IMPRESSION 1. Emphysematous changes. No acute chest findings. 2. Benign calcified granulomatous changes. 3. Thoracic kyphoplasty. Dictated by... Edith Cote M.D. THIS IS AN ELECTRONICALLY VERIFIED REPORT Edith Cote M.D. at 09/05/2016 8:31 AM NICHELLE/matt TD: 09/03/2016 16:31 JOB #: [id number] MEDICAL IMAGING REPORT [facility] A Service of [facility] RADIOLOGY TEXT RESULTS PATIENT: REGINE BERRIOS LOCATION: [facility] 240-01 : 40 UNIT #: [id number] AGE: [address]: Leobardo Hernandez MD SEX: F ORDER DR: Page 1 of 1 COPY
--- NOTE | ~2016-09-03 | CO ---
Unit #: [id number] #: [id number] Patient: JENNIFER STRINGER [id number] [facility] [address]. [place], [place] [address] [id number] I MR#: [id number] NAME: JENNIFER STRINGER ROOM: 240 Age: 75 Sex: F Admission Date: 09/03/2016 : 1940 Attending Physician: Leobardo Hernandez Primary Care Physician: Kory Dior M.D. Consultation Date: 09/08/2016 CONSULTATION REPORT REASON FOR CONSULTATION Followup. DISCUSSION Ms. Jennifer Stringer is a 75-year-old white female, seen in room 240, bed 1 at [facility] on 09/08/2016. The patient continues to look sad, depressed, flat, withdrawn. Receiving oxygen through the nasal cannula. The patient reported still having trouble sleeping, anxiety, feeling sad, depressed, but denied any suicidal or homicidal ideation. Denied any psychotic symptom. Pleasant and cooperative during interview. The patient's vital signs; temperature 98.2, pulse 89, respirations 20, blood pressure 139/58, oxygen saturation 100%. REVIEW OF SYSTEMS Complete review of systems is unremarkable. MENTAL STATUS EXAMINATION General appearance; the patient dressed casually, somewhat anxious, nervous. Hand tremors noted. Attention span and concentration, fair. Speech; regular rate, coherent. Oriented in time, place, and person. Mood and affect were sad and dysphoric. Thought process; coherent, goal directed. Thought content; the patient denied any suicidal or homicidal ideation. Denied any psychotic symptom. Recent and remote memory, fair. Language, intact. Fund of knowledge, fair. Insight and judgment, fair to slightly impaired. DIAGNOSES Major depressive disorder, recurrent, F33.2; anxiety disorder, not otherwise specified, F40.01. ASSESSMENT AND PLAN 1. Supportive psychotherapy and psychoeducation provided to the patient. 2. Educated about benefits and side effects of medication and course and prognosis of illness. 3. Advised to continue with current medication. The patient is on Lexapro and Xanax p.r.n., we will continue with that. If needed, consider further adjustment of medication. Please feel free to call if any question, telephone #[phone]. Dictated by... Jerald Brenner M.D. SZ/albert Unit #: [id number] #: [id number] Patient: JENNIFER STRINGER TD: 09/09/2016 14:26 JOB #: [id number] CONSULTATION REPORT Page 1 of 1 X Jerald Brenner MD X CONSULTATION REPORT
[~2016-09-03 11:30] MED LIST changes: +ANEXSIA 7.5/3251 TA1 PO; +ASPIRIN EC81 M1 PO; +LEVAQUIN750 M1 PO; +NYSTATIN5 ML PO; +PROTONIX20 MG PO; +ROBITUSSIN COU118 M8 PO
[2016-09-03 13:47] LABS: HEMATOCRIT 40.6 % (35.0-45.0); HEMOGLOBIN 12.9 gm/dL (12.0-16.0); MEAN CELL VOLUME 88.6 FL (83-96); MEAN CORPUSCULAR HEMOGLOBIN 28.1 PG (28-34); MEAN CORPUSCULAR HGB CONC 31.7 g/dL (30-36); MEAN PLATELET VOLUME 8.7 FL (6.5-11.5); RED BLOOD COUNT 4.59 X10e (3.90-5.30); RED CELL DISTRIBUTION WIDTH 14.9 % (11.0-15.5); WHITE BLOOD COUNT 16.6 X10e3 (4.0-10.5)
[2016-09-03] MEDS ORDERED: PROAIR HFA8.5 GM (14:59)
[2016-09-03 15:22] LABS: ALBUMIN SERUM 3.3 g/dL (3.5-5.0); BILIRUBIN,TOTAL 0.2 mg/dL (0.2-2.0); BUN/CREATININE RATIO 22.22; CALCIUM SERUM 9.3 mg/dL (8.4-10.2); CREATININE SERUM 0.9 mg/dL (0.6-1.4); GLOM FILT RATE Estimated 62.6 mL/min (>60); PROTEIN TOTAL SERUM 6.5 g/dL (6.0-8.3)
[2016-09-05 08:46] LABS: HEMATOCRIT 42.3 % (35.0-45.0); HEMOGLOBIN 13.1 gm/dL (12.0-16.0); MEAN CELL VOLUME 88.2 FL (83-96); MEAN CORPUSCULAR HEMOGLOBIN 27.3 PG (28-34); MEAN PLATELET VOLUME 8.8 FL (6.5-11.5); RED BLOOD COUNT 4.8 X10e (3.90-5.30); WHITE BLOOD COUNT 23.8 X10e3 (4.0-10.5)
[2016-09-05 09:34] LABS: ALBUMIN SERUM 3.5 g/dL (3.5-5.0); BILIRUBIN,TOTAL 0.4 mg/dL (0.2-2.0); CALCIUM SERUM 9.4 mg/dL (8.4-10.2); GLOM FILT RATE Estimated 55.1 mL/min (>60); POTASSIUM 4.4 mmol/L (3.5-5.1); PROTEIN TOTAL SERUM 6.3 g/dL (6.0-8.3)
[2016-09-06 06:20] LABS: HEMATOCRIT 41.7 % (35.0-45.0); HEMOGLOBIN 12.9 gm/dL (12.0-16.0); MEAN CELL VOLUME 88.9 FL (83-96); MEAN CORPUSCULAR HEMOGLOBIN 27.6 PG (28-34); MEAN PLATELET VOLUME 10.8 FL (6.5-11.5); RED BLOOD COUNT 4.69 X10e (3.90-5.30); RED CELL DISTRIBUTION WIDTH 14.9 % (11.0-15.5); WHITE BLOOD COUNT 24.7 X10e3 (4.0-10.5)
[2016-09-06 07:15] LABS: ALBUMIN SERUM 3.3 g/dL (3.5-5.0); BILIRUBIN,TOTAL 0.3 mg/dL (0.2-2.0); CALCIUM SERUM 9.4 mg/dL (8.4-10.2); GLOM FILT RATE Estimated 55.1 mL/min (>60); POTASSIUM 4.6 mmol/L (3.5-5.1); PROTEIN TOTAL SERUM 5.7 g/dL (6.0-8.3)
[2016-09-07 05:39] LABS: HEMOGLOBIN 12.5 gm/dL (12.0-16.0); MEAN CELL VOLUME 88.6 FL (83-96); MEAN CORPUSCULAR HEMOGLOBIN 27.7 PG (28-34); MEAN CORPUSCULAR HGB CONC 31.3 g/dL (30-36); MEAN PLATELET VOLUME 8.6 FL (6.5-11.5); RED BLOOD COUNT 4.52 X10e (3.90-5.30); RED CELL DISTRIBUTION WIDTH 15.3 % (11.0-15.5); WHITE BLOOD COUNT 21.7 X10e3 (4.0-10.5)
[2016-09-08 05:12] LABS: HEMATOCRIT 42.3 % (35.0-45.0); HEMOGLOBIN 13.2 gm/dL (12.0-16.0); MEAN CELL VOLUME 88.4 FL (83-96); MEAN CORPUSCULAR HEMOGLOBIN 27.7 PG (28-34); MEAN CORPUSCULAR HGB CONC 31.3 g/dL (30-36); MEAN PLATELET VOLUME 8.6 FL (6.5-11.5); RED BLOOD COUNT 4.78 X10e (3.90-5.30); RED CELL DISTRIBUTION WIDTH 15.2 % (11.0-15.5)
[2016-09-08 06:19] LABS: ALBUMIN SERUM 3.3 g/dL (3.5-5.0); BILIRUBIN,TOTAL 0.4 mg/dL (0.2-2.0); CALCIUM SERUM 9.1 mg/dL (8.4-10.2); GLOM FILT RATE Estimated 55.1 mL/min (>60); POTASSIUM 4.3 mmol/L (3.5-5.1); PROTEIN TOTAL SERUM 5.8 g/dL (6.0-8.3)
[2016-09-10 06:32] LABS: HEMATOCRIT 43.8 % (35.0-45.0); HEMOGLOBIN 13.7 gm/dL (12.0-16.0); MEAN CELL VOLUME 88.7 FL (83-96); MEAN CORPUSCULAR HEMOGLOBIN 27.8 PG (28-34); MEAN CORPUSCULAR HGB CONC 31.3 g/dL (30-36); MEAN PLATELET VOLUME 8.5 FL (6.5-11.5); RED BLOOD COUNT 4.94 X10e (3.90-5.30); RED CELL DISTRIBUTION WIDTH 15.3 % (11.0-15.5); WHITE BLOOD COUNT 25.8 X10e3 (4.0-10.5)
[2016-09-11] MEDS ORDERED: PREDNISONE (14:55)
[2016-09-11] MEDS ORDERED: LEVAQUIN750 M1 PO (14:57)
[2016-09-11] MEDS ORDERED: ALPRAZOLAM PO (14:57)
== END 2016-09-11 17:18 | disposition home health service (06) | DRG 189 ==
LOC: C2A 11:30
PROVIDERS: Internal Medicine Pulmonary Disease
DX: J96.20 Acute and chronic respiratory failure, unspecified whether with hypoxia or hypercapnia (principal); F33.2 Major depressive disorder, recurrent severe without psychotic features; J44.1 Chronic obstructive pulmonary disease with (acute) exacerbation; G47.00 Insomnia, unspecified; F41.9 Anxiety disorder, unspecified; R42 Dizziness and giddiness
CPT/HCPCS: 71010; 71020; 80053; 85027; 94640; 94760; 97116; 97161; 97166; G0238; G8978-GP; G8979-GP; G8980-GP; G8987-GO; G8988-GO; G8989-GO; J1956; J2920; J2930

== ENCOUNTER 2016-09-20 18:07 | Inpatient (IN) | payer MEDICARE, BC ==
--- NOTE | ~2016-09-20 | CR72 ---
[facility] A Service of [facility] RADIOLOGY TEXT RESULTS PATIENT: REGINE BERRIOS LOCATION: [facility] 320- : 40 UNIT #: [id number] AGE: [address]: Leobardo Hernandez MD SEX: F ORDER DR: [id number] [facility] [address] [facility]. [place], [place] [address] [id number] I MR#: [id number] Acc #: [id number] NAME: REGINE BERRIOS : 1940 SEX: F STUDY DATE/TIME: 09/22/2016 5:54 UNIT: [address] ROOM: [facility] STUDY DESCRIPTION: CR Chest Single View Portable Attending Physician: Teri Hernandez M.D. Ordering Physician: Teri Hernandez M.D. Primary Care Physician: Kory Dior M.D. MEDICAL IMAGING REPORT This report is preliminary unless electronic signature is present EXAM Portable chest INDICATION Shortness of breath for 3 days. COMPARISON 09/21/2016. FINDINGS No new infiltrates in the lungs. Heart size stable. Prior vertebral augmentation. IMPRESSION No significant change in the appearance of the chest. Dictated by... Delbert Langford M.D. THIS IS AN ELECTRONICALLY VERIFIED REPORT Delbert Langford M.D. at 09/22/2016 3:56 PM JUAN LUIS/ann TD: 09/22/2016 15:07 JOB #: [id number] MEDICAL IMAGING REPORT Page 1 of 1 COPY
--- NOTE | ~2016-09-20 | DS ---
Unit #: [id number] #: [id number] Patient: REGINE BERRIOS [id number] [address] [place], [place] [address] [id number] I MR#: [id number] NAME: REGINE BERRIOS ROOM: 320 Age: 75 Sex: F Admission Date: 09/20/2016 : 1940 Discharge Date: 09/27/2016 Attending Physician: Teri Hernandez M.D. Primary Care Physician: Kory Dior M.D. DISCHARGE SUMMARY DISCHARGE DIAGNOSES 1. Acute on chronic respiratory failure. 2. Chronic obstructive pulmonary disease exacerbation. 3. Anxiety. 4. Depression. 5. Lower extremity edema. 6. Severe peripheral vascular disease. CONSULTANTS 1. Dr. Dawson, vascular surgery. 2. Dr. Brenner, psychiatry. HISTORY OF PRESENT ILLNESS This very pleasant 75-year-old lady presents with worsening shortness of breath, worsening dyspnea on exertion but more significantly severe leg pain causing insomnia. Patient also has severe depression. The leg pain has become worse, and the patient was admitted so that we could go ahead and have vascular evaluate the patient. HOSPITAL COURSE Vascular evaluated the patient. They feel that she is not a good surgical candidate and wish to do continued medical management. Patient will follow up with vascular surgery as an outpatient in 2 weeks. COPD exacerbation. The patient was put on Levaquin and prednisone. The prednisone and Levaquin were slowly decreased. Shortness of air slowly improved, and the patient was sent home on a prednisone taper. Levaquin was there for a total of 7 days. No culture was obtained. No nasal swab was ready. Edema. Patient has had persistent lower extremity edema, continued elevated. We are going to get an RAVI bandage and wrap, teach patient how to do that. Home health will follow. We will see the patient back in the office in approximately 1 week. DISCHARGE MEDICATIONS 1. Albuterol sulfate neb 6 times a day as needed for shortness of breath. 2. Prednisone 60 mg x1 day, 50 mg x1 day, 40 mg x1 day, 30 mg x1 day, 20 mg x1 day and 10 mg x1 day. 3. Citalopram 20 mg at bedtime. 4. Trazodone 50 mg at bedtime. 5. Umeclidinium/vilanterol (Anoro) 1 puff daily. 6. Hydroxyzine pamoate 25 mg t.i.d. Unit #: [id number] #: [id number] Patient: REGINE BERRIOS 7. Alprazolam 0.25 mg t.i.d. 8. Lasix 20 mg a day. 9. Pantoprazole 40 mg a day. DISCHARGE DIET No concentrated sweets. ACTIVITY With physical therapy. FOLLOW-UP 1. Follow up with Dr. Dawson. 2. Follow up with psychiatry. 3. Follow up in our office in 1 week. Dictated by... Shannon Salmeron TD: 09/27/2016 10:31 JOB #: [id number] DISCHARGE SUMMARY Page 1 of 1 X Leobardo Hernandez MD X DISCHARGE SUMMARY
--- NOTE | ~2016-09-20 | CO ---
Unit #: [id number] #: [id number] Patient: JENNIFER BERRIOS [id number] [facility] [address] [facility]. [place], [place] [address] [id number] I MR#: [id number] NAME: JENNIFER BERRIOS ROOM: 320 Age: 75 Sex: F Admission Date: 09/20/2016 : 1940 Attending Physician: Leobardo Hernandez Primary Care Physician: Kory Dior M.D. Consultation Date: 09/24/2016 CONSULTATION REPORT REASON FOR CONSULTATION Followup. DISCUSSION Ms. Jennifer Babb is a 75-year-old female, seen on 09/24/2016 in room 320, bed 1 on 09/24/2016 at [facility]. The patient is sitting comfortably in chair, receiving oxygen through nasal cannula. The patient's was at the bedside. The patient reports that she was able to sleep good and anxiety is better. The patient compliant with medication, no side effects from medication. The patient denied any suicidal or homicidal ideation. Denied any psychotic symptom. Vital signs; temperature 98.8, pulse 87, respiratory rate 20, blood pressure 145/63, oxygen saturation 99%. REVIEW OF SYSTEMS Complete review of systems unremarkable except for anxiety. MENTAL STATUS EXAMINATION General appearance, the patient dressed casually in hospital attire. Attention span and concentration, fair. Speech, regular rate and coherent. Oriented in time, place, and person. Mood and affect; sad, dysphoric, anxious. Thought process, coherent. Thought content, the patient denied any thoughts of harming self or others. Denied any psychotic symptom. Recent and remote memory, fair. Language, intact. Fund of knowledge, fair. Insight and judgment, fair to slightly impaired. DIAGNOSES Psychiatric: Major depressive disorder, recurrent, moderate, F33.2; anxiety disorder, not otherwise specified, F40.01. ASSESSMENT/PLAN 1. Supportive psychotherapy and psychoeducation provided to the patient. 2. Educated about benefits and side effects of medication and course and prognosis of illness. 3. Advised to continue with current medication. If needed, consider further adjustment of medication. Please feel free to call if any questions, telephone #[phone]. Dictated by... Jerald Brenner M.D. SZC/albert Unit #: [id number] #: [id number] Patient: JENNIFER BERRIOS TD: 09/25/2016 00:03 JOB #: [id number] CONSULTATION REPORT Page 1 of 1 X Jerald Brenner MD CONSULTATION REPORT
--- NOTE | ~2016-09-20 | CR63 ---
[facility] A Service of [facility] & [facility] RADIOLOGY TEXT RESULTS PATIENT: REGINE BERRIOS LOCATION: [facility] 320-01 : 40 UNIT #: [id number] AGE: [address]: Leobardo Hernandez MD SEX: F ORDER DR: [id number] [facility] [address] [place], [place] [address] [id number] I MR#: [id number] Acc #: [id number] NAME: REGINE BERRIOS : 1940 SEX: F STUDY DATE/TIME: 09/23/2016 22:05 UNIT: [address] ROOM: 320 STUDY DESCRIPTION: CR Chest 2 View Attending Physician: Teri Hernandez M.D. Ordering Physician: Johny Atwood M.D. Primary Care Physician: Kory Dior M.D. MEDICAL IMAGING REPORT This report is preliminary unless electronic signature is present EXAM Chest x-ray 09/23 at 22:05. INDICATIONS Chronic cough, congestion, worsening over the last 2 days. History of smoking. FINDINGS 2 views of the chest are compared with 09/22/2016. Cardiac and mediastinal contours are normal. There is emphysema. There is some mild scarring in the left base. Patient status post kyphoplasty. Granulomatous calcifications noted right hilum. IMPRESSION Emphysema. No active disease. Dictated by... Jose Mcguire Jr., M.D. THIS IS AN ELECTRONICALLY VERIFIED REPORT Jose Mcguire Jr., M.D. at 09/24/2016 5:17 PM HEATHER/mando TD: 09/24/2016 09:33 JOB #: [id number] MEDICAL IMAGING REPORT Page 1 of 1 COPY
--- NOTE | ~2016-09-20 | CO ---
Unit #: [id number] #: [id number] Patient: JENNIFER STRINGER [id number] [facility] [address]. [place], [place] [address] [id number] I MR#: [id number] NAME: JENNIFER STRINGER ROOM: 320 Age: 75 Sex: F Admission Date: 09/20/2016 : 1940 Attending Physician: Teri Hernandez M.D. Primary Care Physician: Kory Dior M.D. Consultation Date: 09/27/2016 CONSULTATION REPORT REASON FOR CONSULTATION Followup. DISCUSSION Ms. Jennifer Stringer is a 75-year-old white female, seen on 09/27/16 in room 320, bed 1 at [facility]. Patient reported anxiety and depression is better but still somewhat anxious, sad, dysphoric, flat but denied any thoughts of harming self or others or any psychotic symptoms. Patient reports that she is ready to go home. Denied any side effects of medication. Patient's vital signs - 98.1; 81; 20; 134/69; oxygen saturation 100%. REVIEW OF SYSTEMS Complete review of systems unremarkable. MENTAL STATUS EXAMINATION Vital signs - Please see above. General appearance - Patient dressed in hospital attire, sitting comfortably in chair, receiving oxygen through nasal cannula. Attention span, concentration - Fair. Speech - Regular rate, somewhat pressured. Oriented to time, place and person. Mood and affect - Labile. Thought process - Coherent. Thought content - Patient denied any thoughts of harming self or others or any psychotic symptoms. Recent and remote memory - Fair. Language - Intact. Fund of knowledge - Fair. Insight and judgment - Fair to slightly impaired. DIAGNOSIS PSYCHIATRIC: Major depressive disorder, recurrent, moderate, F33.2; anxiety disorder, NOS, F40.01. ASSESSMENT AND PLAN 1. Supportive psychotherapy and psychoeducation provided to the patient. 2. Educated about benefits and side effects of medication and course and prognosis of illness. 3. Advised to continue with current medication. If needed, consider further adjustment of medication. Patient to follow up with [facility] with Dr. Escalona or Dr. Tate. 4. Patient was also provided with crisis line number . Please feel free to call with any questions, telephone number . Unit #: [id number] #: [id number] Patient: JENNIFER STRINGER Dictated by... Shannon Kuo/vandana TD: 09/28/2016 07:53 JOB #: [id number] CONSULTATION REPORT Page 1 of 1 X Jerald Brenner MD CONSULTATION REPORT
--- NOTE | ~2016-09-20 | CO ---
Unit #: [id number] #: [id number] Patient: REGINE BERRIOS [id number] [address] [place], [place] [address] [id number] I MR#: [id number] NAME: REGINE BERRIOS ROOM: 320 Age: 75 Sex: F Admission Date: 09/20/2016 : 1940 Attending Physician: Leobardo Hernandez Primary Care Physician: Kory Dior M.D. Consultation Date: 09/21/2016 CONSULTATION REPORT REASON FOR CONSULTATION Worsening peripheral arterial disease. HISTORY OF PRESENT ILLNESS The patient started complaining of bilateral lower extremity leg pain 3 days ago, who was brought to the emergency room with concerns that her peripheral arterial disease may be worsening. She also complained at that time of a worsening of her COPD exacerbation with shortness of air and increased use of her home oxygen. She states she does not ambulate very far except from bed to chair and chair to bed, which does not allow for her to adequately develop claudication symptoms. She denies rest pain. She denies open wounds, ulcerations, or gangrenous lesions to her bilateral lower extremities. She denies taking aspirin, statin therapy, or any type of anticoagulation. PAST MEDICAL HISTORY Includes: 1. COPD. 2. Long history of smoking. She quit 13 years ago with a 39-uorn-maue history. 3. Irritable bowel syndrome. 4. Coronary artery disease. 5. Mitral regurgitation. 6. Back pain. 7. Right hip replacement. 8. Right knee replacement. 9. Congestive heart failure. ALLERGIES She is allergic to bupivacaine, penicillin, tetracycline, clindamycin, and azithromycin. HOME MEDICATIONS Include albuterol 2 puffs every 2 hours p.r.n.; prednisone 60 mg x1 day, 50 mg x1 day, 40 mg x1 day and 30 mg x1 day; Lexapro 20 mg at bedtime; Anoro 1 puff daily; Xanax 0.25 mg p.o. at bedtime p.r.n.; furosemide 20 mg daily; Protonix 20 mg daily; Levaquin 750 mg x3 days. SOCIAL HISTORY She lives at home with her . She does not work. She states she smoked for a period of 13 years with a history of smoking for 50 years. Alcohol use, she socially drinks one Susan every couple of weeks. She denies any drug use. Unit #: [id number] #: [id number] Patient: REGINE BERRIOS FAMILY HISTORY Noncontributory. REVIEW OF SYSTEMS CONSTITUTIONAL: No fever, chills, sweats. EYES: No recent visual problems. EARS, NOSE, MOUTH AND THROAT: No ear pain, nasal congestion, sore throat. RESPIRATORY: Positive for shortness of air, positive for cough, positive nasal cannula O2 at 2 L/minute at home. CARDIOVASCULAR: No chest pain, palpitations, or syncope. GI: No nausea, vomiting, diarrhea. GENITOURINARY: No hematuria. HEMATOLOGY/LYMPHATIC: Negative for bruising, no swollen lymph glands. ENDOCRINE: No excessive thirst, excessive hunger. MUSCULOSKELETAL: No back pain, neck pain, joint pain, muscle pain. Decreased range of motion. INTEGUMENTARY: No sores or nonhealing wounds. NEUROLOGIC: Alert and oriented x3. PSYCHIATRIC: No anxiety, depression, or suicidal thoughts or ideations. She does admit to recently losing her son 3 weeks ago due to cancer, which has been a reason for her to be a little bit stressed out. Overall, she is doing very well with the loss. PHYSICAL EXAMINATION VITAL SIGNS: Temperature is 98.4 oral, pulse 82, respirations 17, and O2 sats 100% on nasal cannula at 2 L/minute, blood pressure is 134/47. GENERAL APPEARANCE: Well developed, well nourished, in no acute distress. HEAD, EARS, EYES, NOSE, and THROAT: Normocephalic. Pupils equal, round, reactive to light. NECK: Supple, nontender without lymphadenopathy, masses, or thyromegaly. No carotid bruits noted. CARDIAC: Regular rate and rhythm. No murmurs. No peripheral edema, cyanosis, or pallor. LUNGS: Bilateral lung thibodeaux are clear to auscultation, nonlabored respirations, O2 nasal cannula 2 L/minute. ABDOMINAL: Positive bowel sounds. Soft, nontender, no distention. No masses or hepatomegaly. MUSCULOSKELETAL: Moves all extremities, full range of motion. Normal muscular development. EXTREMITIES: Upper extremities, no deformity noted. No edema. Lower extremities, no deformity noted. Dependent edema to bilateral lower extremities with 1+ pitting. Bilateral feet are cyanotic and cool. No open wounds or sores. VASCULAR: Palpable radial pulses bilaterally. Femoral pulses palpable bilaterally. Popliteal, dorsalis pedis, and posterior tibialis pulses nonpalpable; however, positive signals using a Doppler. INTEGUMENTARY: Warm and dry. Bilateral feet are cyanotic and cool. No sores or nonhealing wounds. No hemosiderin deposition. NEUROLOGIC: Cranial nerves II through XII grossly intact. Normal strength and sensation bilaterally. PSYCHIATRIC: Oriented to person, place, and time. Demonstrates good judgment and reason. DIAGNOSTIC STUDIES LABORATORY RESULTS: She underwent an ankle-brachial indices during her last admission on 07/18/[address] Best. ABIs at that time were found to be on the right 0.35 and on the left 0.59. The patient's Unit #: [id number] #: [id number] Patient: REGINE BERRIOS toe brachial indices were diminished with near flattening of waveforms in the right great toe. It was found at that time that should she have any wounds to her right foot that they surely probably would not heal. Glucose 106, BUN 16, creatinine 0.9, eGFR 62.6, sodium 132, potassium 4.1, chloride 94, CO2 of 29. PT 10.6, INR 1.0, PTT 23.8. White blood cell count 13.3, red blood cell count 4.84, hemoglobin 13.6, hematocrit 42.9, platelets 189. ASSESSMENT The patient is suffering from peripheral arterial disease. PLAN ABIs obtained in July demonstrates severe blood flow and ischemia to bilateral lower extremities. We will discuss with Dr. Dawson the on-call physician in regard to his future plan. When speaking with the patient, she would prefer conservative management, she does not wish to have any type of surgical intervention at this time. She states she would like to handle this medically if possible to manage her symptoms. Thank you for allowing us to participate in this care. Dictated by... Carol Angelo APRN for Doc Dawson M.D. Mirta TD: 09/22/2016 05:07 JOB #: [id number] CONSULTATION REPORT Page 1 of 1 X X CONSULTATION REPORT
--- NOTE | ~2016-09-20 | CO ---
Unit #: [id number] #: [id number] Patient: JENNIFER STRINGER [id number] [facility] [address] [place], [place] [address] [id number] I MR#: [id number] NAME: JENNIFER STRINGER ROOM: 320 Age: 75 Sex: F Admission Date: 09/20/2016 : 1940 Attending Physician: Teri Hernandez M.D. Primary Care Physician: Kory Dior M.D. Consultation Date: 09/25/2016 CONSULTATION REPORT REASON FOR CONSULTATION Followup. DISCUSSION Ms. Jennifer Stringer is a 75-year-old female seen on 09/25/16. (1) reviewed. Obtained information from nursing staff. Patient dressed casually, sitting comfortably in chair, receiving oxygen through nasal cannula. Patient seen in room 320, bed 1, on 09/25/16 at [facility]. The patient reported mood is getting better but still having problems with anxiety, anxious, sleeping well but denied any thoughts of harming self or others. Denied any psychotic symptoms. Patient reports she is looking forward to going back home soon. Patient's vital signs - 99;84;18;140/65. Oxygen saturation 99%. MENTAL STATUS EXAMINATION General appearance - Patient dressed casually. Attention span, concentration - Fair. Speech - Regular rate, coherent, oriented to place and person. Mood and affect - Sad, dysphoric. Thought process - Coherent. Thought content - Patient denied any thoughts of harming self or others. Denied any psychotic symptoms. Recent and remote memory - Fair. Language - Able to name objects, repeat phrases. Fund of knowledge - Fair. Insight and judgment - Fair to slightly impaired. DIAGNOSIS PSYCHIATRIC: Major depressive disorder, recurrent, moderate, F33.2; anxiety disorder, NOS, F40.01. ASSESSMENT AND PLAN 1. Supportive psychotherapy and psychoeducation provided to the patient. 2. Educated about benefits and side effects of medication and course and prognosis of illness. 3. Advised to continue with current medication. If needed, consider further adjustment of medication. Please feel free to call with any questions, telephone number . Dictated by... Shannon KuoC/vandana Unit #: [id number] #: [id number] Patient: JENNIFER STRINGER TD: 09/26/2016 08:26 JOB #: [id number] CONSULTATION REPORT Page 1 of 1 X Jerald Brenner MD CONSULTATION REPORT
--- NOTE | ~2016-09-20 | CO ---
Unit #: [id number] #: [id number] Patient: JENNIFER STRIGNER [id number] [facility] [address] [place], [place] [address] [id number] I MR#: [id number] NAME: JENNIFER STRINGER ROOM: 320 Age: 75 Sex: F Admission Date: 09/20/2016 : 1940 Attending Physician: Teri Hernandez M.D. Primary Care Physician: Kory Dior M.D. Consultation Date: 09/26/2016 CONSULTATION REPORT PROGRESS NOTE DATE OF SERVICE 09/26/16 REASON FOR CONSULTATION Followup. DISCUSSION Ms. Jennifer Stringer is a 75-year-old white female seen in room 320, bed one, on 09/26/16 at [facility]. Patient still receiving oxygen through nasal cannula, sitting comfortably in chair but still having problems with anxiety, trouble sleeping, mood lability, sad, dysphoric because she is in the hospital but denied any suicidal or homicidal ideation. The patient denied any psychotic symptom. The patient denied any side effects of medication. PHYSICAL EXAMINATION VITAL SIGNS: 98.3, 76, 20, 148/59, oxygen saturation 97%. GENERAL APPEARANCE: Patient dressed casually. The patient did not show any facial deformity. MENTAL STATUS EXAMINATION GENERAL APPEARANCE: Patient dressed casually. VITAL SIGNS: As above. ATTENTION SPAN AND CONCENTRATION: Fair. SPEECH: Rapid in rate due to shortness of air. ORIENTATION: Oriented in time, place and person. MOOD AND AFFECT: Sad, dysphoric, anxious. THOUGHT PROCESS: Goal directed. THOUGHT CONTENT: The patient denied any thoughts of harming self or others but somewhat guarded. RECENT AND REMOTE MEMORY: Fair. LANGUAGE: Intact. FUND OF KNOWLEDGE: Fair. INSIGHT AND JUDGMENT: Fair to slightly impaired. DIAGNOSIS Psychiatric: 1. Major depressive disorder, recurrent, moderate, F33.2. 2. Anxiety disorder, NOS, F40.01. ASSESSMENT/PLAN Supportive psychotherapy and psychoeducation provided to patient. Unit #: [id number] #: [id number] Patient: JENNIFER STRINGER Educated about benefits and side effects of medication and course and prognosis of illness. We will continue to follow. If needed, consider further adjustment of medication. Please feel free to call if any questions, telephone number, . Dictated by... Shannon Kuo/mando TD: 09/27/2016 06:17 JOB #: [id number] CONSULTATION REPORT Page 1 of 1 X Jerald Brenner MD X CONSULTATION REPORT
--- NOTE | ~2016-09-20 | CR72 ---
[facility] A Service of [facility] RADIOLOGY TEXT RESULTS PATIENT: REGINE BERRIOS LOCATION: [facility] 320-01 : 40 UNIT #: [id number] AGE: [address]: Leobardo Hernandez MD SEX: F ORDER DR: [id number] [facility] [address] [place] [address]. [place], [place] [address] [id number] I MR#: [id number] Acc #: [id number] NAME: REGINE BERRIOS : 1940 SEX: F STUDY DATE/TIME: 09/20/2016 20:39 UNIT: [address] ROOM: [facility] STUDY DESCRIPTION: CR Chest Single View Portable Attending Physician: Leobardo Hernandez Ordering Physician: Ruddy Valenzuela M.D. Primary Care Physician: Kory Dior M.D. MEDICAL IMAGING REPORT This report is preliminary unless electronic signature is present EXAM Portable chest HISTORY Shortness of air and bilateral leg swelling and pain for 3 days. FINDINGS Small left pleural effusion is new compared to 09/11/2016. Cardiac size and pulmonary vascularity are normal. Lower thoracic vertebroplasties. Calcified right hilar nodes. No airspace infiltrates. Dictated by... Jace Levy M.D. THIS IS AN ELECTRONICALLY VERIFIED REPORT Jace Levy M.D. at 09/21/2016 11:31 PM RENATO/bishop TD: 09/21/2016 02:05 JOB #: [id number] MEDICAL IMAGING REPORT Page 1 of 1 COPY
--- NOTE | ~2016-09-20 | CR72 ---
[facility] A Service of [facility] RADIOLOGY TEXT RESULTS PATIENT: REGINE BERRIOS LOCATION: [facility] 320-01 : 40 UNIT #: [id number] AGE: [address]: Leobardo Hernandez MD SEX: F ORDER DR: [id number] [facility] [address] [place], [place] [address] [id number] I MR#: [id number] Acc #: [id number] NAME: REGINE BERRIOS : 1940 SEX: F STUDY DATE/TIME: 09/21/2016 5:56 UNIT: [address] ROOM: [facility] STUDY DESCRIPTION: CR Chest Single View Portable Attending Physician: Teri Hernandez M.D. Ordering Physician: Teri Hernandez M.D. Primary Care Physician: Kory Dior M.D. MEDICAL IMAGING REPORT This report is preliminary unless electronic signature is present EXAM Portable chest one-view DATE OF STUDY 09/21/2016 COMPARISON 09/20/2016 CLINICAL HISTORY Short of air. Leg swelling. Symptoms for 2 days. FINDINGS Lungs are hyperexpanded and clear. There is slight blunting of the left costophrenic angle but, otherwise, no acute abnormality. There is no other evidence to suggest effusion, and there is no pneumothorax. There is no consolidation. No interval change since 09/20. Dictated by... Jatin Miller M.D. THIS IS AN ELECTRONICALLY VERIFIED REPORT Jatin Miller M.D. at 09/21/2016 3:53 PM TEV/alvaro TD: 09/21/2016 08:42 JOB #: [id number] MEDICAL IMAGING REPORT Page 1 of 1 COPY
--- NOTE | ~2016-09-20 | CO ---
Unit #: [id number] #: [id number] Patient: JENNIFER STRINGER [id number] [address] [place], [place] [address] [id number] I MR#: [id number] NAME: JENNIFER STRINGER ROOM: 320 Age: 75 Sex: F Admission Date: 09/20/2016 : 1940 Attending Physician: Teri Hernandez M.D. Primary Care Physician: Kory Dior M.D. Consultation Date: 09/22/2016 CONSULTATION REPORT DISCUSSION Jennifer Stringer is a 75-year-old female seen on 09/22/16 in room 320 bed-1 on 09/22/16. The patient has a history of depression, anxiety. The patient was recently hospitalized on September 11, 2016. The patient has a history of recent loss of a son, 51 years of age, of cancer on 07/30/16. The patient reports after that increasing depression and anxiety. The patient also suffers from COPD, currently on multiple medications which is making her anxiety and depression much worse. The patient currently reported having trouble falling asleep, staying sleep, severe anxiety but denied any suicidal or homicidal ideation. Denied any psychotic symptoms at this time. Compliant with medication. PAST PSYCHIATRIC HISTORY Unremarkable for history of depression or any inpatient or outpatient treatment of any suicide attempt but history of treatment for depression since the last admission. MEDICAL HISTORY 1. History of COPD, on 2 L of oxygen at home. 2. Irritable bowel syndrome. 3. History of non-occlusive coronary artery disease in 2006. 4. Trace mitral regurgitation. 5. Chronic pain. MEDICATION HISTORY The patient is on: 1. Lexapro 20 mg daily. 2. Lasix 40 mg daily. 3. Protonix. 4. ProAir. FAMILY HISTORY/SOCIAL HISTORY The patient has a good support system from her . No history of any abuse. No history of any substance abuse. REVIEW OF SYSTEMS Complete review of systems is unremarkable except for shortness of air, anxiety, depression. MENTAL STATUS EXAMINATION VITAL SIGNS: 98.2, 87, 20, 130/57. Oxygen saturation 97%. GENERAL APPEARANCE: The patient is moderately obese, dressed casually, sitting comfortably in chair, in hospital attire. Patient was receiving oxygen through nasal cannula, cooperative. Attention span and Unit #: [id number] #: [id number] Patient: JENNIFER STRINGER concentration fair. Speech - regular rate. Oriented in time, place and person. Mood and affect sad, dysphoric. Thought process coherent. Thought content - patient denied any suicidal or homicidal ideation but guarded. Recent and remote memory poor. Language intact. Fund of knowledge fair. Insight and judgment fair to slightly impaired. DIAGNOSIS PSYCHIATRIC 1. Major depressive disorder, recurrent, moderate - F33.0 2. Anxiety disorder, not otherwise specified - F40.01 SECONDARY DIAGNOSIS Deferred. MEDICAL DIAGNOSIS Please refer to H and P. STRESSORS Psychosocial stressor. ASSESSMENT/PLAN 1. Supportive psychotherapy and psychoeducation provided to patient. 2. Educated about benefits and side effects of medication and course and prognosis of illness. 3. Advised to continue with the Lexapro and plan to add Xanax 0.25 mg three times a day and Vistaril 25 mg three times a day for anxiety and trazodone 50 mg at bedtime for sleep. Will continue to follow. Please feel free to call if any questions. Telephone number [phone]. Dictated by... Shannon Kuo/briana TD: 09/23/2016 08:51 JOB #: [id number] CONSULTATION REPORT Page 1 of 1 X Jerald Brenner MD X CONSULTATION REPORT
--- NOTE | ~2016-09-20 | EKG ---
PATIENT: REGINE BERRIOS UNIT #: [id number] Ventricular Rate: 94 BPM Atrial Rate: 94 BPM P-R Interval: 134 ms QRS Duration: 58 ms Q-T Interval: 372 ms QTC Calculation(Bezet): 465 ms P [place]: 46 degrees Calculated R [place]: 48 degrees Calculated T [place]: 85 degrees Diagnosis Line: Normal sinus rhythm Diagnosis Line: Normal ECG Diagnosis Line: When compared with ECG of 16-JUL-2016 10:46, Diagnosis Line: No significant change was found Diagnosis Line: Confirmed by NILSA DUCKWORTH MD ([id number]) on 09/21/2016 Diagnosis Line: 8:11:22 PM INTERPRETING MD: DONITA PAZ
--- NOTE | ~2016-09-20 | HP ---
Unit #: [id number] #: [id number] Patient: REGINE BERRIOS [id number] [address] [place], [place] [address] [id number] I MR#: [id number] NAME: REGINE BERRIOS ROOM: 320 Age: 75 Sex: F Admission Date: 09/20/2016 : 1940 Attending Physician: Teri Hernandez M.D. Primary Care Physician: Kory Dior M.D. HISTORY AND PHYSICAL HISTORY OF PRESENT ILLNESS This is a pleasant 75-year-old lady who was recently in the hospital, seen for COPD exacerbation and pneumonia. The patient now presents with a three-day history of very severe pain bilateral lower extremities. Patient is having such significant pain over the past three days, although the pain has been there greater than a year, which has caused her to feel extremely short of breath. She denies any sort of trauma, denies any sort of fall. The patient wears about 2 liters of nasal cannula at home. The patient usually does not ambulate very far at all, from bed to chair, to bathroom, etc., in the house. She denies any sort of chest pain. Denies any sort of neck pain. The patient does not take any sort of anticoagulation for her peripheral vascular disease. The patient was admitted from the ER for workup by Vascular Surgery. The last time vascular surgery saw the patient in July 2016. Therefore, we are asking patient to come in the hospital and to be seen by Vascular Surgery. The patient also has very significant anxiety disorder. Her son has recently and she is having severe associated insomnia. She was to follow up outpatient with psychiatry, however, before that could happen the patient was back in the hospital. PAST MEDICAL HISTORY Significant for: 1. Chronic obstructive pulmonary disease on 2 liters nasal cannula at home. 2. Irritable bowel disease. 3. History of nonocclusive coronary disease in 2006. 4. History of trace mitral regurgitation. 5. History of chronic back pain. PAST SURGICAL HISTORY Significant for: 1. Cholecystectomy. 2. Hysterectomy. 3. Breast biopsy. 4. Right knee surgery. 5. Right hip surgery. 6. Bilateral foot surgery. 7. Tonsillectomy. SOCIAL HISTORY The patient is an occasional drinker. Has been a smoker for 50 pack years until very recently. No history of polysubstance use. Unit #: [id number] #: [id number] Patient: REGINE BERRIOS FAMILY HISTORY Only positive for breast cancer. No lung disease. PHYSICAL EXAMINATION VITAL SIGNS: T. current 98.4, pulse 82, respiratory rate 16, blood pressure 134/47, saturating 100% on 2 liters nasal cannula. HEENT: Extraocular movements are intact. NECK: There is no JVD. No bruits I can auscultate. Neck is supple and nontender. LUNGS: Clear to auscultation bilaterally. Decreased breath sounds bilaterally. HEART: Regular rate and rhythm, no murmurs, rubs or gallops. ABDOMEN: Soft, nontender, nondistended. Positive bowel sounds. EXTREMITIES: Radial pulses are palpable bilaterally. DP and PT pulses are not palpable at all lower extremities. DIAGNOSTIC STUDIES LABORATORY: White count 13.3, hemoglobin 13.6, platelets 189. BUN 16, creatinine 0.9. ASSESSMENT AND PLAN Chronic obstructive pulmonary disease exacerbation. The patient is on a small low dose of steroids which we are going to try dropping here soon. Also being seen by Vascular Surgery for peripheral arterial disease and medical management. Dr. Dawson will see today. Once that is done, we can try to quickly wean the steroids and get her home relatively soon. I would like her to continue working with physical therapy even at the facility. Dictated by Shannon Salmeron/lary TD: 09/22/2016 13:08 JOB #: [id number] HISTORY AND PHYSICAL Page 1 of 1 X Leobardo Hernandez MD X HISTORY AND PHYSICAL
[~2016-09-20 18:07] MED LIST changes: +ALPRAZOLAM PO; +PREDNISONE; +PROAIR HFA8.5 GM
[2016-09-20 18:37] LABS: BASOPHIL# 0.1 X10e3 (0-0.3); BASOPHIL% 0.6 % (0-2.5); DIFF IND YES; EOSINOPHIL# 0.6 X10e3 (0-0.7); EOSINOPHIL% 2.9 % (0.0-7.0); HEMATOCRIT 41.5 % (35.0-45.0); HEMOGLOBIN 13.3 gm/dL (12.0-16.0); LYMPHOCYTE# 1.8 X10e3 (1.0-3.5); LYMPHOCYTE% 8.2 % (17.0-45.0); MEAN CELL VOLUME 88.3 FL (83-96); MEAN CORPUSCULAR HEMOGLOBIN 28.3 PG (28-34); MEAN PLATELET VOLUME 8.3 FL (6.5-11.5); MONOCYTE# 2.1 X10e3 (0-1.0); MONOCYTE% 9.4 % (3.0-12.0); NEUTROPHIL# 17.4 X10e3 (1.5-7.1); NEUTROPHIL% 78.9 % (40-75); PLATELET COUNT 208 X10e3 (140-420); RED CELL DISTRIBUTION WIDTH 15.7 % (11.0-15.5)
[2016-09-20 19:09] LABS: ANISOCYTOSIS MOD; PLATELET ESTIMATE NORMAL (NORMAL)
[2016-09-20 19:10] LABS: ALBUMIN SERUM 3.4 g/dL (3.5-5.0); BILIRUBIN, DIRECT 0.1 mg/dL (0.0-0.2); BILIRUBIN,INDIRECT 0.6 mg/dL (0.0-0.9); BILIRUBIN,TOTAL 0.7 mg/dL (0.2-2.0); BUN/CREATININE RATIO 17.77; CALCIUM SERUM 8.6 mg/dL (8.4-10.2); CREATININE SERUM 0.9 mg/dL (0.6-1.4); GLOM FILT RATE Estimated 62.6 mL/min (>60); POTASSIUM 4.1 mmol/L (3.5-5.1); PROTEIN TOTAL SERUM 6.2 g/dL (6.0-8.3)
[2016-09-20 20:45] LABS: POC - CKMB <1.0 ng/mL (0.0-7.9); POC - TROPONIN <0.05 ng/mL (<=0.05)
[2016-09-20 21:00] LABS: POC - CKMB <1.0 ng/mL (0.0-7.9); POC - TROPONIN <0.05 ng/mL (<=0.05)
[2016-09-20 21:04] LABS: CK TOTAL 23 IU/L (26-140)
[2016-09-21 05:00] LABS: URINE SOURCE CLEAN CATCH
[2016-09-21 05:12] LABS: URINE APPEARANCE CLEAR; URINE BILIRUBIN NEG (NEG); URINE BLOOD TRACE (NEG); URINE COLOR YELLOW; URINE GLUCOSE 500 MG/DL (NEG); URINE KETONE NEG (NEG); URINE LEUKOCYTE ESTERASE NEG (NEG); URINE NITRATE NEG (NEG); URINE PROTEIN NEG (NEG); URINE SPECIFIC GRAVITY 1.008 (1.003-1.035); URINE UROBILINOGEN 0.2 MG/DL (NEG)
[2016-09-21 05:15] LABS: URBCS1 AUWI 0-2 /[HPF] (0-2); URINE BACTERIA AUWI NEG (NEGATIVE); URINE SQUAMOUS EPITHELIAL CELL NONE SEEN /[HPF]; UWBCS1 AUWI 0-2 (0-5)
[2016-09-21 05:21] LABS: CULTURE INDICATED? NO
[2016-09-21 07:40] LABS: BASOPHIL% 0.1 % (0-2.5); HEMATOCRIT 42.9 % (35.0-45.0); HEMOGLOBIN 13.6 gm/dL (12.0-16.0); LYMPHOCYTE# 0.3 X10e3 (1.0-3.5); LYMPHOCYTE% 2.6 % (17.0-45.0); MEAN CELL VOLUME 88.7 FL (83-96); MEAN CORPUSCULAR HEMOGLOBIN 28.1 PG (28-34); MEAN CORPUSCULAR HGB CONC 31.6 g/dL (30-36); MONOCYTE# 0.3 X10e3 (0-1.0); NEUTROPHIL# 12.7 X10e3 (1.5-7.1); NEUTROPHIL% 95.3 % (40-75); PLATELET COUNT 189 X10e3 (140-420); RED BLOOD COUNT 4.84 X10e (3.90-5.30); RED CELL DISTRIBUTION WIDTH 15.4 % (11.0-15.5); WHITE BLOOD COUNT 13.3 X10e3 (4.0-10.5)
[2016-09-21 07:43] LABS: DIFF IND NO
[2016-09-21 20:32] LABS: BUN/CREATININE RATIO 24.44; CREATININE SERUM 0.9 mg/dL (0.6-1.4); GLOM FILT RATE Estimated 62.6 mL/min (>60); POTASSIUM 4.4 mmol/L (3.5-5.1)
[2016-09-22 06:13] LABS: BASOPHIL# 0.1 X10e3 (0-0.3); BASOPHIL% 0.3 % (0-2.5); HEMATOCRIT 39.4 % (35.0-45.0); HEMOGLOBIN 12.3 gm/dL (12.0-16.0); LYMPHOCYTE# 0.7 X10e3 (1.0-3.5); LYMPHOCYTE% 2.9 % (17.0-45.0); MEAN CELL VOLUME 88.5 FL (83-96); MEAN CORPUSCULAR HEMOGLOBIN 27.6 PG (28-34); MEAN CORPUSCULAR HGB CONC 31.2 g/dL (30-36); MONOCYTE# 1.5 X10e3 (0-1.0); MONOCYTE% 6.1 % (3.0-12.0); NEUTROPHIL% 90.7 % (40-75); PLATELET COUNT 190 X10e3 (140-420); RED BLOOD COUNT 4.45 X10e (3.90-5.30); RED CELL DISTRIBUTION WIDTH 15.4 % (11.0-15.5)
[2016-09-22 06:17] LABS: DIFF IND NO; WHITE BLOOD COUNT 24.3 X10e3 (4.0-10.5)
[2016-09-22 06:36] LABS: ALBUMIN SERUM 2.9 g/dL (3.5-5.0); BILIRUBIN,TOTAL 0.7 mg/dL (0.2-2.0); BUN/CREATININE RATIO 24.44; CALCIUM SERUM 8.9 mg/dL (8.4-10.2); CREATININE SERUM 0.9 mg/dL (0.6-1.4); GLOM FILT RATE Estimated 62.6 mL/min (>60); POTASSIUM 4.1 mmol/L (3.5-5.1); PROTEIN TOTAL SERUM 5.8 g/dL (6.0-8.3)
[2016-09-23 07:58] LABS: HEMATOCRIT 37.1 % (35.0-45.0); HEMOGLOBIN 11.7 gm/dL (12.0-16.0); MEAN CELL VOLUME 89.2 FL (83-96); MEAN CORPUSCULAR HEMOGLOBIN 28.1 PG (28-34); MEAN CORPUSCULAR HGB CONC 31.5 g/dL (30-36); MEAN PLATELET VOLUME 8.6 FL (6.5-11.5); RED BLOOD COUNT 4.16 X10e (3.90-5.30); RED CELL DISTRIBUTION WIDTH 15.6 % (11.0-15.5); WHITE BLOOD COUNT 16.1 X10e3 (4.0-10.5)
[2016-09-23] MEDS ORDERED: PROAIR HFA8.5 GM INH (17:11)
[2016-09-25 08:47] LABS: HEMATOCRIT 39.1 % (35.0-45.0); HEMOGLOBIN 12.2 gm/dL (12.0-16.0); MEAN CELL VOLUME 89.3 FL (83-96); MEAN CORPUSCULAR HEMOGLOBIN 27.8 PG (28-34); MEAN CORPUSCULAR HGB CONC 31.1 g/dL (30-36); MEAN PLATELET VOLUME 8.3 FL (6.5-11.5); RED BLOOD COUNT 4.38 X10e (3.90-5.30); RED CELL DISTRIBUTION WIDTH 15.8 % (11.0-15.5); WHITE BLOOD COUNT 14.1 X10e3 (4.0-10.5)
[2016-09-26 06:24] LABS: BASOPHIL% 0.1 % (0-2.5); HEMATOCRIT 40.6 % (35.0-45.0); HEMOGLOBIN 12.8 gm/dL (12.0-16.0); LYMPHOCYTE# 0.8 X10e3 (1.0-3.5); LYMPHOCYTE% 4.5 % (17.0-45.0); MEAN CELL VOLUME 89.2 FL (83-96); MEAN CORPUSCULAR HEMOGLOBIN 28.1 PG (28-34); MEAN CORPUSCULAR HGB CONC 31.5 g/dL (30-36); MEAN PLATELET VOLUME 7.9 FL (6.5-11.5); MONOCYTE# 0.7 X10e3 (0-1.0); MONOCYTE% 4.1 % (3.0-12.0); NEUTROPHIL# 16.4 X10e3 (1.5-7.1); NEUTROPHIL% 91.3 % (40-75); PLATELET COUNT 236 X10e3 (140-420); RED BLOOD COUNT 4.55 X10e (3.90-5.30); RED CELL DISTRIBUTION WIDTH 16.3 % (11.0-15.5); WHITE BLOOD COUNT 17.9 X10e3 (4.0-10.5)
[2016-09-26 06:25] LABS: DIFF IND NO
[2016-09-26 07:31] LABS: GLOM FILT RATE Estimated 55.1 mL/min (>60); POTASSIUM 4.5 mmol/L (3.5-5.1)
[2016-09-27] MEDS ORDERED: DESYREL50 MG PO (11:01)
[2016-09-27] MEDS ORDERED: VISTARIL PO (11:01)
[2016-09-27] MEDS ORDERED: ALPRAZOLAM0.25 MG PO (11:02)
[2016-09-27] MEDS ORDERED: PREDNISONE10 M1 ×2 (11:06→11:08)
== END 2016-09-27 15:38 | disposition home health service (06) | DRG 190 ==
LOC: CED 18:07 → CEDOF 22:45 → C3A PCU 22:45 → CED 23:03 → CEDOF 23:03 → C3A PCU 09-21 00:25 → CEDOF 09-21 00:25 → C3A PCU 09-27 15:38
PROVIDERS: Emergency Medicine; Internal Medicine Pulmonary Disease
DX: J44.1 Chronic obstructive pulmonary disease with (acute) exacerbation (principal); J96.21 Acute and chronic respiratory failure with hypoxia; Z99.81 Dependence on supplemental oxygen; J96.22 Acute and chronic respiratory failure with hypercapnia; F33.1 Major depressive disorder, recurrent, moderate; K58.9 Irritable bowel syndrome, unspecified; Z90.49 Acquired absence of other specified parts of digestive tract; Z90.710 Acquired absence of both cervix and uterus; F41.9 Anxiety disorder, unspecified; G89.29 Other chronic pain; Z87.891 Personal history of nicotine dependence; Z96.641 Presence of right artificial hip joint; Z96.651 Presence of right artificial knee joint; Z88.0 Allergy status to penicillin; I73.9 Peripheral vascular disease, unspecified; R60.0 Localized edema; G47.00 Insomnia, unspecified
CPT/HCPCS: 36415; 71010; 71020; 80048; 80053; 80076; 81003; 82550; 82553; 84484; 85025; 85027; 93005; 94640; 94644; 94760; 96374; 99285; J1650; J1956; J2920; J2930

== ENCOUNTER 2017-01-10 14:57 | Inpatient (IN) | payer MEDICARE, BC ==
[~2017-01-10] VITALS: Ht 167.6 cm; Wt 82.5 kg
--- NOTE | ~2017-01-10 | CR72 ---
[facility] A Service of [facility] RADIOLOGY TEXT RESULTS PATIENT: REGINE BERRIOS LOCATION: [facility] 462-01 : 40 UNIT #: [id number] AGE: [address]: Leobardo Hernandez MD SEX: F ORDER DR: [id number] [facility] [address] [facility]. [place], [place] [address] [id number] I MR#: [id number] Acc #: [id number] NAME: REGINE BERRIOS : 1940 SEX: F STUDY DATE/TIME: 01/13/2017 5:28 UNIT: [facility] ROOM: [facility] STUDY DESCRIPTION: CR Chest Single View Portable Attending Physician: Leobardo Hernandez Ordering Physician: Teri Hernandez M.D. Primary Care Physician: Kory Dior M.D. MEDICAL IMAGING REPORT This report is preliminary unless electronic signature is present EXAM Portable chest INDICATIONS Chest pain, shortness of air for the past 3 days. PROCEDURE Frontal view chest COMPARISON 01/12/2017 FINDINGS Heart size is unchanged. Chronic parenchymal coarsening. No dense consolidation, pleural fluid or pneumothorax. IMPRESSION No active process. No change from 01/12/2017. Dictated by... Lloyd Sargent M.D. THIS IS AN ELECTRONICALLY VERIFIED REPORT Lloyd Sargent M.D. at 01/14/2017 10:04 PM EED/to TD: 01/13/2017 14:27 JOB #: [id number] MEDICAL IMAGING REPORT Page 1 of 1 COPY
--- NOTE | ~2017-01-10 | EKG ---
PATIENT: REGINE BERRIOS UNIT #: [id number] Ventricular Rate: 73 BPM Atrial Rate: 73 BPM P-R Interval: 186 ms QRS Duration: 76 ms Q-T Interval: 482 ms QTC Calculation(Bezet): 531 ms P [place]: 81 degrees Calculated R [place]: 41 degrees Calculated T [place]: 45 degrees Diagnosis Line: Normal sinus rhythm Diagnosis Line: Low voltage QRS Diagnosis Line: Prolonged QT Diagnosis Line: Abnormal ECG Diagnosis Line: When compared with ECG of 20-SEP-2016 18:20, Diagnosis Line: T wave amplitude has decreased in Inferior leads Diagnosis Line: QT has lengthened Diagnosis Line: Confirmed by AMADOR CAIN MD ([id number]) on Diagnosis Line: 01/13/2017 5:00:26 PM INTERPRETING : FRANK
--- NOTE | ~2017-01-10 | A ---
[facility] DATE: 01/12/17 Patient: REGINE BERRIOS Physician: JENNIFER Address: [address] [place] [address] Room/Bed: [address] [place] [address], Zip: [place] [address] Admit Date: 01/11/17 Date of : 40 Height: 5 6 Weight: 181 82.5 NUTRITIONAL ASSESSMENT: REASON: Seen per consult re: "malnutrition?" Admitting dx: 76 y/o female admitted with COPD exacerbation PMH: obtained from 09/22/16 H&P: COPD on 2L home O2, PNA, IBD, MVR, deshaun, chronic back pain, 50 pk/yr smoking hx (quit) Anthropometrics: Ht: 66", Wt: 181 lbs, BMI: 29.2 (overweight), past weights: 186-200 lbs in 2015, pt reported UBW as 210-215 lbs in past (2014) Labs: glucose 136, GFR 48.7 Meds: Furosemide, PPI, synthroid, solu-medrol I/O & Bowel function: Last BM 01/11 Skin Integrity: Nothing significant, no edema Assessment: Chart reviewed, events noted. See admitting dx and PMH as stated above. RD consulted to assess for possible malnutrition. RD previously assessed this patient on 04/19/15- note reviewed. Although she scored 0 points on the malnutrition risk screen, the patient reports an overall weight loss of approx. 30 lbs in the past 2 years (14% body weight loss). Over the past year, the patient thinks she has lost approx. 15 lbs (7% body weight loss; mild). She reports poor appetite and oral intake for the past 2 weeks due to "thyroid issues" and intermitten nausea related to this. She also confirms increased work of breathing with oral intake, which likely reduces her intake. She states her weight got down to 172 lbs at one point over the past year, but is now back up to 181 lbs. Her weight seems to have fluctuated between 172-215 lbs over the past 2 years. Her UBW 2 years ago was 210-215 lbs. Her new normal weight is 175-185 lbs. She is on a regular diet and states her appetite and oral intake has improved over the past [address] educated on increased nutrient needs with COPD and protein-rich foods. Various oral nutrition supplements were also discussed. She is amenable to trying Ensure BID- will order. She states that MD encouraged her to eat whatever she wanted, while keeping salt in mind and not overdoing it on fluids. She has no physical signs of malnutrition. Although her oral intake has been poor for the past 2 weeks, this alone is not enough to diagnose her with malnutrition. Her weight loss has been gradual and not significant enough to diagnose malnutrition. Of note, she lives with her and is on 3L nasal cannula. See RD recs below, will follow hospital course. Dx: 1) Unintentional weight loss r/t decreased appetite, increased work of breathing, [facility] DATE: 01/12/17 Patient: REGINE BERRIOS Physician: JENNIFER Address: [address] [place] [address] Room/Bed: [address] [place] [address], Zip: [place] [address] Admit Date: 01/11/17 Date of : 40 Height: 5 6 Weight: 181 82.5 advancing age AEB 15% body weight loss over past 2 years. Intervention: Regular diet + Ensure BID Monitoring, Evaluation and Goals: 1. PO intake > 50% of meals. 2. Prevent further unintentional weight loss. Monitor: per protocol, criteria to determine if above goals met Recommendations: 1. Agree with regular diet. Encourage adequate oral intake while keeping salt in mind. Encourage adequate fluid intake without excessive intake. 2. RD ordering vanilla/strawberry Ensure Enlive BID to help meet increased nutrient needs. Each Ensure Enlive provides 8 fluid oz, 350 kcals and 20g protein. She was encouraged to drink 1 per day at home to prevent further unintentional decline in weight status and help meet kcal/protein needs. 3. Patient and were educated on protein-rich foods and the need for increased nutrients in the setting of COPD. Please encourage 3 meals and 2 snacks per day at home. 4. Patient c/o intermittent nausea at home. Consider adding Zofran or Phenergan to discharge med recs for prn reflief. 5. Based on the patient's weight history, oral intake and physical assessment (see above) she does not qualify for protein calorie malnutrition, however is she at risk for this in the future. Monitor weight, oral intake and nutrition status as outpatient via PCP. RD will follow Mild nutrition risk Respectfully, Danitza Landry, AUTUMN, LD [employer] [facility] [employer] cc: client file
--- NOTE | ~2017-01-10 | HP ---
Unit #: [id number] #: [id number] Patient: REGINE STRINGER [id number] [address] [place], [place] [address] [id number] I MR#: [id number] NAME: REGINE STRINGER ROOM: 215 Age: 76 Sex: F Admission Date: 01/11/2017 : 1940 Attending Physician: Teri Hernandez M.D. Primary Care Physician: Kory Dior M.D. HISTORY AND PHYSICAL REASON FOR ADMISSION Severe hypothyroidism, weakness, fatigue, altered mental status. HISTORY OF PRESENT ILLNESS Ms. Stringer is a lady who we had been following for congestive heart failure, as well as severe shortness of breath, for several years. Patient has significant shortness of breath. She has severe discomfort. She has severe altered mental status. She is being admitted for worsening dyspnea. Patient had been off of thyroid medication. She had recently been started on 0.75 mg. After she was given this medication, she slowly started improving, but she is going to be observed in the hospital for worsening hypotension. REVIEW OF SYSTEMS Significant for fatigue, shortness of breath, abdominal discomfort, poor p.o. intake, as well as some very mild cough and weakness. Otherwise, a 12-point review of systems is negative. PAST MEDICAL HISTORY 1. Chronic obstructive pulmonary disease, on two liters nasal cannula at home. 2. Irritable bowel disease. 3. Nonocclusive coronary artery disease in 2006. 4. Trace mitral regurgitation. 5. Chronic back pain. PAST SURGICAL HISTORY 1. Hysterectomy. 2. Cholecystectomy. 3. Breast biopsy. 4. Right knee surgery. 5. Right hip surgery. 6. Bilateral foot surgery. 7. Tonsillectomy. SOCIAL HISTORY Patient is an occasional drinker. She has been a smoker for approximately 50 pack years until very recently. No history of polysubstance use. FAMILY HISTORY Breast cancer. No history of lung disease. PHYSICAL EXAMINATION VITAL SIGNS: T-current is 98.1, pulse 57, respiratory rate 18, blood Unit #: [id number] #: [id number] Patient: REGINE STRINGER pressure is 112/49 (1) 106/44. HEENT: Extraocular movements intact. CHEST: Clear to auscultation bilaterally. CARDIOVASCULAR: Regular rate. No gallop. ABDOMEN: Soft, nontender, nondistended. EXTREMITIES: With +2 lower extremity edema. DIAGNOSTIC STUDIES LABORATORY: White count 12.1, hemoglobin 12.2, platelets 454,000. The comprehensive metabolic panel: Sodium 133, potassium 3.9, chloride 90, BUN and creatinine 7 and 1.1. BNP 170. Urinalysis shows blood +1, otherwise within normal. Procalcitonin earlier was 0.07 (2) . ASSESSMENT 1. Hypothyroidism. 2. Hypotension. PLAN Patient will be admitted for close observation, treatment of possible COPD exacerbation, and dietary consult to see if we can improve patient's nutrition. Educated on protein-rich, low sodium foods. Dictated by Shannon Salmeron/cory TD: 01/17/2017 21:24 JOB #: [id number] HISTORY AND PHYSICAL Page 1 of 1 X Leobardo Hernandez MD X HISTORY AND PHYSICAL
--- NOTE | ~2017-01-10 | DS ---
Unit #: [id number] #: [id number] Patient: REGINE BERRIOS [id number] [address] [place], [place] [address] [id number] I MR#: [id number] NAME: REGINE BERRIOS ROOM: 215 Age: 76 Sex: F Admission Date: 01/11/2017 : 1940 Discharge Date: 01/17/2017 Attending Physician: Leobardo Hernandez Primary Care Physician: Kory Dior M.D. DISCHARGE SUMMARY ADMITTING DIAGNOSIS Hypothyroidism. DISCHARGE DIAGNOSES Hypothyroidism, chronic obstructive pulmonary disease exacerbation, hypotension, questionable risk for protein calorie malnutrition. HISTORY OF PRESENT ILLNESS This pleasant 76-year-old young lady presents with worsening shortness of air, fatigue, altered mental status. The patient's issues had been diagnosed by primary care doctor, who checked a thyroid-stimulating hormone recently and discovered that the patient's hypothyroidism had become severe with TSH running into the 40s. The patient was started on 75 mcg per day of levothyroxine, slowly improved. There was an improvement in lower extremity edema. Initially low blood pressure of 106/40; however, the patient was continuing to feel very poorly. Therefore, she was admitted for close observation following a possible COPD exacerbation. The patient denied fevers, chills, nausea, vomiting, diarrhea. She was having significant anorexia and shortness of breath. HOSPITAL COURSE 1. The patient was kept on the thyroid medication. On hospital day #6, a TSH was performed, which showed 10.7, which is a decrease from the initial presentation, so we are going to increase the patient's discharge dose to 100 mcg thyroid. 2. COPD exacerbation. The patient has a chronic history of severe COPD. She is very fatigued and very tired. She is getting COPD treatment with COPD exacerbation. She is getting a treatment for the scheduled nebs and she is receiving supplementary oxygen. We are going to discharge her on an oral steroid taper. 3. Possible malnutrition. Appreciate assistance from the primary health organisation manager. Encourage Vanilla Ensure supplementation three times a day. The patient is accordingly not at protein malnutrition currently, but her poor p.o. intake may qualify her for this in the future. 4. Congestive heart failure. The patient was initially diuresed. Currently, lower extremity edema has improved. DISCHARGE MEDICATIONS Include albuterol sulfate two puffs q.4 hours as needed; albuterol neb 3 mL nebulized q.i.d.; prednisone 40 mg b.i.d. for one day, 30 mg b.i.d. for one day, 20 mg b.i.d. for two days, 30 mg once a day for two days, 20 mg once a day for two days, 10 mg once a day for two days, then stop; the patient is also on Anoro Ellipta 62.5/25 mcg one puff daily; furosemide 40 Unit #: [id number] #: [id number] Patient: REGINE BERRIOSAN mg daily; citalopram 40 mg at bedtime; pantoprazole 40 mg daily; levothyroxine 100 mcg daily; and Pradaxa (dabigatran) 75 mg b.i.d. DISCHARGE INSTRUCTIONS Follow up with Jonelle in 2 weeks. Follow up with her primary care doctor Dr. Dior in approximately 2 weeks. Thank you very much. Please page me at [phone] if you have any questions. Dictated by... Shannon Salmeron/albert TD: 01/20/2017 14:19 JOB #: [id number] DISCHARGE SUMMARY Page 1 of 1 X Leobardo Hernandez MD DISCHARGE SUMMARY
--- NOTE | ~2017-01-10 | CR63 ---
[facility] A Service of [facility] RADIOLOGY TEXT RESULTS PATIENT: REGINE BERRIOS LOCATION: [facility] : 40 UNIT #: [id number] AGE: [address]: Leobardo Hernandez MD SEX: F ORDER DR: [id number] [facility] [address] [facility]. [place], [place] [address] [id number] I MR#: [id number] Acc #: [id number] NAME: REGINE BERRIOS : 1940 SEX: F STUDY DATE/TIME: 01/10/2017 21:28 UNIT: [facility] ROOM: 217 STUDY DESCRIPTION: CR Chest 2 View Attending Physician: Teri Hernandez M.D. Ordering Physician: Johny Atwood M.D. Primary Care Physician: Kory Dior M.D. MEDICAL IMAGING REPORT This report is preliminary unless electronic signature is present EXAM 2 views of the chest COMPARISON September 23, 2016 and September 22, 2016 as well as September 21, 2016. INDICATION A 76-year-old female with dyspnea today. History of COPD. FINDINGS There is a new cardiac loop recorder over the anterior left paramidline chest. Calcified right hilar or lymph nodes again noted. Changes of multilevel vertebroplasty are grossly stable. Detailed evaluation of the bones is limited by osteopenia. Cardiomediastinal silhouette is stable within normal limits. No evidence of pneumothorax, pleural effusion or acute airspace disease. IMPRESSION No acute radiographic abnormality of the chest. Dictated by... Leobardo Luong M.D. THIS IS AN ELECTRONICALLY VERIFIED REPORT Leobardo Luong M.D. at 01/16/2017 9:21 PM FABIOLA/randall TD: 01/11/2017 05:07 JOB #: [id number] MEDICAL IMAGING REPORT [facility] A Service of [facility] RADIOLOGY TEXT RESULTS PATIENT: REGINE BERRIOS LOCATION: [facility] : 40 UNIT #: [id number] AGE: [address]: Leobardo Hernandez MD SEX: F ORDER DR: Page 1 of 1 COPY
--- NOTE | ~2017-01-10 | CR72 ---
[facility] A Service of [facility] RADIOLOGY TEXT RESULTS PATIENT: REGINE BERRIOS LOCATION: [facility]2-01 : 40 UNIT #: [id number] AGE: [address]: Leobardo Hernandez MD SEX: F ORDER DR: [id number] [facility] [address]. [place], [place] [address] [id number] I MR#: [id number] Acc #: [id number] NAME: REGINE BERRIOS : 1940 SEX: F STUDY DATE/TIME: 01/12/2017 7:51 UNIT: [facility] ROOM: [facility] STUDY DESCRIPTION: CR Chest Single View Portable Attending Physician: Leobardo Hernandez Ordering Physician: Teri Hernandez M.D. Primary Care Physician: Kory Dior M.D. MEDICAL IMAGING REPORT This report is preliminary unless electronic signature is present EXAM Portable chest 01/12/2017 HISTORY Shortness of breath and chest congestion for 2 days, COPD exacerbation, previous smoker. FINDINGS The heart is normal in size. Lungs are hyperinflated with emphysematous and fibrotic changes characteristic of COPD. No airspace consolidation is seen. There are no pleural effusions. Evidence of prior vertebroplasty in the thoracic spine. IMPRESSION COPD. No active pulmonary disease. Dictated by... Mark Steiner M.D. THIS IS AN ELECTRONICALLY VERIFIED REPORT Mark Steiner M.D. at 01/13/2017 6:32 AM TEOFILO/randall TD: 01/12/2017 21:56 JOB #: [id number] MEDICAL IMAGING REPORT Page 1 of 1 COPY
[~2017-01-10 14:57] MED LIST changes: +ALPRAZOLAM0.25 MG PO; +DESYREL50 MG PO; +PREDNISONE10 M1; +VISTARIL PO
[2017-01-10] MEDS ORDERED: PRADAXA PO (16:09)
[2017-01-10] MEDS ORDERED: LEVOTHYROXINE PO (16:10)
[2017-01-10] MEDS ORDERED: PROAIR HFA8.5 GM INH (18:26)
[2017-01-10] MEDS ORDERED: ALBUTEROL MININEB NEB (20:18)
[2017-01-10 21:19] LABS: HEMOGLOBIN 12.2 gm/dL (12.0-16.0); MEAN CELL VOLUME 87.8 FL (83-96); MEAN CORPUSCULAR HEMOGLOBIN 28.1 PG (28-34); MEAN PLATELET VOLUME 8.1 FL (6.5-11.5); RED BLOOD COUNT 4.33 X10e (3.90-5.30); RED CELL DISTRIBUTION WIDTH 15.9 % (11.0-15.5); WHITE BLOOD COUNT 12.1 X10e3 (4.0-10.5)
[2017-01-10 21:53] LABS: ALBUMIN SERUM 2.9 g/dL (3.5-5.0); BILIRUBIN,TOTAL 0.5 mg/dL (0.2-2.0); BUN/CREATININE RATIO 6.36; CALCIUM SERUM 8.9 mg/dL (8.4-10.2); CREATININE SERUM 1.1 mg/dL (0.6-1.4); GLOM FILT RATE Estimated 48.7 mL/min (>60); POTASSIUM 3.9 mmol/L (3.5-5.1); PROTEIN TOTAL SERUM 6.4 g/dL (6.0-8.3)
[2017-01-12 06:21] LABS: HEMATOCRIT 34.9 % (35.0-45.0); HEMOGLOBIN 11.3 gm/dL (12.0-16.0); MEAN CELL VOLUME 87.1 FL (83-96); MEAN CORPUSCULAR HEMOGLOBIN 28.3 PG (28-34); MEAN CORPUSCULAR HGB CONC 32.4 g/dL (30-36); RED CELL DISTRIBUTION WIDTH 16.3 % (11.0-15.5)
[2017-01-12 06:25] LABS: WHITE BLOOD COUNT 25.5 X10e3 (4.0-10.5)
[2017-01-12 06:36] LABS: BUN/CREATININE RATIO 12.72; CALCIUM SERUM 8.8 mg/dL (8.4-10.2); CREATININE SERUM 1.1 mg/dL (0.6-1.4); GLOM FILT RATE Estimated 48.7 mL/min (>60); POTASSIUM 3.5 mmol/L (3.5-5.1)
[2017-01-12 07:52] LABS: PROCALCITONIN 0.07 NG/ML
[2017-01-13 03:50] LABS: HEMATOCRIT 37.1 % (35.0-45.0); HEMOGLOBIN 11.6 gm/dL (12.0-16.0); MEAN CELL VOLUME 88.7 FL (83-96); MEAN CORPUSCULAR HEMOGLOBIN 27.8 PG (28-34); MEAN CORPUSCULAR HGB CONC 31.3 g/dL (30-36); RED BLOOD COUNT 4.18 X10e (3.90-5.30); RED CELL DISTRIBUTION WIDTH 16.5 % (11.0-15.5); WHITE BLOOD COUNT 20.7 X10e3 (4.0-10.5)
[2017-01-13 04:12] LABS: BUN/CREATININE RATIO 19.09; CALCIUM SERUM 9.1 mg/dL (8.4-10.2); CREATININE SERUM 1.1 mg/dL (0.6-1.4); GLOM FILT RATE Estimated 48.7 mL/min (>60); POTASSIUM 4.2 mmol/L (3.5-5.1)
[2017-01-14 03:33] LABS: BASOPHIL% 0.2 % (0-2.5); DIFF IND YES; HEMATOCRIT 35.1 % (35.0-45.0); HEMOGLOBIN 11.3 gm/dL (12.0-16.0); LYMPHOCYTE# 0.9 X10e3 (1.0-3.5); LYMPHOCYTE% 4.1 % (17.0-45.0); MEAN CELL VOLUME 88.1 FL (83-96); MEAN CORPUSCULAR HEMOGLOBIN 28.4 PG (28-34); MEAN CORPUSCULAR HGB CONC 32.3 g/dL (30-36); MONOCYTE% 4.4 % (3.0-12.0); NEUTROPHIL# 19.6 X10e3 (1.5-7.1); NEUTROPHIL% 91.3 % (40-75); PLATELET COUNT 447 X10e3 (140-420); RED BLOOD COUNT 3.99 X10e (3.90-5.30); RED CELL DISTRIBUTION WIDTH 15.9 % (11.0-15.5); WHITE BLOOD COUNT 21.5 X10e3 (4.0-10.5)
[2017-01-14 04:22] LABS: PLATELET ESTIMATE NORMAL (NORMAL)
[2017-01-14 18:27] LABS: URINE APPEARANCE CLEAR; URINE BILIRUBIN NEG (NEG); URINE BLOOD 1+ (NEG); URINE COLOR YELLOW; URINE GLUCOSE NEG (NEG); URINE KETONE NEG (NEG); URINE LEUKOCYTE ESTERASE NEG (NEG); URINE NITRATE NEG (NEG); URINE PH 5.5 (5-8); URINE PROTEIN NEG (NEG); URINE SPECIFIC GRAVITY 1.021 (1.003-1.035); URINE UROBILINOGEN 0.2 MG/DL (NEG)
[2017-01-14 18:30] LABS: URBCS1 AUWI 0-2 /[HPF] (0-2); URINE BACTERIA AUWI NEG (NEGATIVE); URINE SQUAMOUS EPITHELIAL CELL OCC /[HPF]; UWBCS1 AUWI 0-2 (0-5)
[2017-01-15 03:31] LABS: BASOPHIL# 0.1 X10e3 (0-0.3); BASOPHIL% 0.2 % (0-2.5); DIFF IND NO; HEMATOCRIT 36.9 % (35.0-45.0); HEMOGLOBIN 11.6 gm/dL (12.0-16.0); LYMPHOCYTE# 0.8 X10e3 (1.0-3.5); LYMPHOCYTE% 3.4 % (17.0-45.0); MEAN CELL VOLUME 88.6 FL (83-96); MEAN CORPUSCULAR HGB CONC 31.5 g/dL (30-36); MEAN PLATELET VOLUME 8.2 FL (6.5-11.5); MONOCYTE# 1.6 X10e3 (0-1.0); MONOCYTE% 6.8 % (3.0-12.0); NEUTROPHIL# 21.3 X10e3 (1.5-7.1); NEUTROPHIL% 89.6 % (40-75); PLATELET COUNT 460 X10e3 (140-420); RED BLOOD COUNT 4.16 X10e (3.90-5.30); RED CELL DISTRIBUTION WIDTH 16.4 % (11.0-15.5); WHITE BLOOD COUNT 23.7 X10e3 (4.0-10.5)
[2017-01-15 04:13] LABS: CALCIUM SERUM 8.3 mg/dL (8.4-10.2); GLOM FILT RATE Estimated 54.7 mL/min (>60)
[2017-01-17 06:48] LABS: HEMATOCRIT 39.1 % (35.0-45.0); HEMOGLOBIN 12.4 gm/dL (12.0-16.0); MEAN CELL VOLUME 89.4 FL (83-96); MEAN CORPUSCULAR HEMOGLOBIN 28.4 PG (28-34); MEAN CORPUSCULAR HGB CONC 31.7 g/dL (30-36); MEAN PLATELET VOLUME 8.2 FL (6.5-11.5); RED BLOOD COUNT 4.37 X10e (3.90-5.30); RED CELL DISTRIBUTION WIDTH 16.7 % (11.0-15.5); WHITE BLOOD COUNT 26.1 X10e3 (4.0-10.5)
[2017-01-17] MEDS ORDERED: ANORO ELLIPTA1 EACH INH (19:48)
[2017-01-17] MEDS ORDERED: PRADAXA75 MG PO (19:50)
[2017-01-17] MEDS ORDERED: PREDNISONE10 MG PO (19:52)
[2017-01-17] MEDS ORDERED: LEVOTHYROXINE100 MCG PO (19:58)
== END 2017-01-17 21:19 | disposition home or self-care (01) | DRG 190 ==
LOC: C2A 15:26 → UNDOADMOB 15:26 → C2A 15:26 → C4C 01-12 16:50 → C2A 01-15 10:54
PROVIDERS: Internal Medicine Pulmonary Disease
DX: J44.1 Chronic obstructive pulmonary disease with (acute) exacerbation (principal); J96.21 Acute and chronic respiratory failure with hypoxia; I95.9 Hypotension, unspecified; E46 Unspecified protein-calorie malnutrition; I50.9 Heart failure, unspecified; Z68.29 Body mass index [BMI] 29.0-29.9, adult; F32.9 Major depressive disorder, single episode, unspecified; Z87.891 Personal history of nicotine dependence; Z90.49 Acquired absence of other specified parts of digestive tract; Z80.3 Family history of malignant neoplasm of breast; D72.829 Elevated white blood cell count, unspecified; E03.9 Hypothyroidism, unspecified
CPT/HCPCS: 71010; 71020; 80048; 80053; 81003; 82308; 83880; 84443; 85025; 85027; 87086; 87633; 93005; 94640; 94760; 97162; G8990-GP; G8991-GP; G8992-GP; J2920; J2930